=== PATIENT | female | born 1945 | race Caucasian/White ===

== ENCOUNTER → 2016-07-22 | Outpatient (CLI) | payer MEDICARE, OTHER ==
[~2016-07-22] MED LIST: ASPIRIN E.C. 8181 MG PO; CELEXA 20MG20 MG/TAB PO; FERROUS SU325 MG/TAB PO; FORT1000TA PO; GLUCOTROL XL10 MG PO; GLUCOTROL10 MG PO; GLUMETZA500 MG PO; IRON325 M1 PO; JANUVIA 100MG100 MG PO; LEVEMIR FLEX100 U/ML SQ; LEVEMIR100 U/ML SQ; LEXAPRO 10MG10 MG PO; MASON NATURAL600 MG; MULTIPLE VITAMI1 TA5 PO; NIZORAL A-D 20200 ML TP; NOVOLOG 100U100 U/M1 SQ; PRAVACHOL 40MG40 MG PO; PRINIVIL20 MG PO; PRINIVIL40 MG PO; SYNTHROID 0.10.15 MG PO; SYNTHROID0.1 MG/TAB PO; SYNTHROID0.112 MG/T PO; SYNTHROID0.137 MG PO; TYLENOL 325MG325 MG PO; ULTRAM 50MG TAB50 MG PO; VITAMIN C500 MG PO; XANAX .25M0.25 MG/TA PO; ZANTAC 150MG T150 MG PO; ZESTRIL 20MG TA20 MG PO
[2016-07-22 16:15] LABS: CREATININE, serum 0.97 mg/dL (0.52-1.25)
== END ==
LOC: ZLAB.STJ 15:29
PROVIDERS: Internal Medicine
DX: D50.8 Other iron deficiency anemias (principal)

== ENCOUNTER → 2016-10-03 | Outpatient (CLI) | payer MEDICARE, OTHER | LOC: ZLAB.STJ 19:30 | DX: Z53.9 Procedure and treatment not carried out, unspecified reason (principal) ==

== ENCOUNTER → 2016-10-03 | Outpatient (CLI) | payer MEDICARE, OTHER ==
[2016-10-03 18:11] LABS: HEMATOCRIT 25.8 % (37.0-47.0); HEMOGLOBIN 7.4 g/dl (12.5-16.0)
== END ==
LOC: ZLAB.STJ 16:33
PROVIDERS: Internal Medicine
DX: E11.65 Type 2 diabetes mellitus with hyperglycemia (principal); I10 Essential (primary) hypertension

== ENCOUNTER → 2016-10-03 | Outpatient (REF) ==
[2016-10-03 14:52] LABS: BASO % 0.5 % (0.0-2.0); EOS # 0.1 (0.0-0.7); EOS % 1.2 % (0-4.0); GRAN # 6.4 (1.4-6.5); GRAN % 73.8 % (42.2-75.2); LYMPH # 1.3 (1.2-3.4); LYMPH % 14.8 % (20.0-51.0); MEAN CELL VOLUME 77 fl (80.0-100.0); MEAN CORPUSCULAR HGB CONC 29 g/dl (33.0-37.0); MEAN PLATELET VOLUME 8.9 fl (7.4-10.4); MONO # 0.8 (0.1-0.6); MONO % 9.1 % (1.7-9.3); PLATELET COUNT 505 K/mm3 (130-400); RED BLOOD COUNT 2.52 M/mm3 (4.10-5.30); REDCELL DISTRIBUTION WIDTH-CV 17.2 % (11.5-14.5); WHITE BLOOD COUNT 8.6 K/mm3 (4.8-10.8)
[2016-10-03 14:56] LABS: HEMATOCRIT 19.3 % (37.0-47.0); MEAN CORPUSCULAR HEMOGLOBIN 22 pg (27.0-31.0)
[2016-10-03 14:59] LABS: ADJUSTED CALCIUM 9.7 mg/dL (8.4-10.2); ALBUMIN 3.6 gm/dL (3.5-5.0); BILIRUBIN,TOTAL 0.4 mg/dL (0.0-1.0); CALCIUM 9.4 mg/dL (8.4-10.2); CREATININE, serum 1.3 mg/dL (0.52-1.25); HEMOGLOBIN 5.6 g/dl (12.5-16.0); TOTAL PROTEIN 7.9 gm/dL (6.4-8.2)
[2016-10-03 15:50] LABS: POTASSIUM 5.8 mmol/L (3.4-5.0)
== END ==
LOC: ZLAB.STJ 14:34
PROVIDERS: Internal Medicine
DX: Z01.89 Encounter for other specified special examinations (principal)

== ENCOUNTER 2016-10-04 16:57 | Inpatient (IN) | payer MEDICARE, OTHER ==
[2016-10-04] VITALS (197 sets, daily range): BP systolic 133–175; BP diastolic 53–70; PULSE 73–81; TEMP 97.2–97.9; O2SAT 91–98
[~2016-10-04] VITALS: Ht 154.9 cm; Wt 79.0 kg
[~2016-10-04 16:57] MED LIST changes: -GLUMETZA500 MG PO; -LEVEMIR100 U/ML SQ; -MULTIPLE VITAMI1 TA5 PO; -NOVOLOG 100U100 U/M1 SQ; -PRINIVIL20 MG PO; -SYNTHROID0.112 MG/T PO; -ULTRAM 50MG TAB50 MG PO; -ZANTAC 150MG T150 MG PO
[2016-10-04] MEDS ORDERED: NOVOLOG 100U100 U/M1 SQ (17:46)
[2016-10-04] MEDS ORDERED: SYNTHROID0.112 MG/T PO (17:47)
[2016-10-04] MEDS ORDERED: ZANTAC 150MG T150 MG PO (17:47)
[2016-10-04] MEDS ORDERED: XANAX .25M0.25 MG/TA PO (17:48)
[2016-10-04 17:49] LABS: BASO # 0.1 (0.0-0.2); BASO % 0.6 % (0.0-2.0); EOS # 0.2 (0.0-0.7); GRAN # 5.4 (1.4-6.5); GRAN % 60.5 % (42.2-75.2); LYMPH % 22.3 % (20.0-51.0); MEAN CELL VOLUME 76 fl (80.0-100.0); MEAN CORPUSCULAR HGB CONC 29 g/dl (33.0-37.0); MEAN PLATELET VOLUME 8.4 fl (7.4-10.4); MONO # 1.3 (0.1-0.6); MONO % 14.2 % (1.7-9.3); PLATELET COUNT 502 K/mm3 (130-400); RED BLOOD COUNT 2.57 M/mm3 (4.10-5.30); REDCELL DISTRIBUTION WIDTH-CV 17.5 % (11.5-14.5)
[2016-10-04] MEDS ORDERED: FERROUS SU325 MG/TAB PO (17:49)
[2016-10-04] MEDS ORDERED: LEVEMIR100 U/ML SQ (17:50)
[2016-10-04 17:51] LABS: HEMATOCRIT 19.5 % (37.0-47.0); HEMOGLOBIN 5.6 g/dl (12.5-16.0); MEAN CORPUSCULAR HEMOGLOBIN 22 pg (27.0-31.0)
[2016-10-04] MEDS ORDERED: GLUMETZA500 MG PO (17:52)
[2016-10-04] MEDS ORDERED: ASPIRIN E.C. 8181 MG PO (17:52)
[2016-10-04] MEDS ORDERED: PRAVACHOL 40MG40 MG PO (17:53)
[2016-10-04] MEDS ORDERED: JANUVIA 100MG100 MG PO (17:54)
[2016-10-04] MEDS ORDERED: PRINIVIL20 MG PO (17:54)
[2016-10-04] MEDS ORDERED: LEXAPRO 10MG10 MG PO (17:55)
[2016-10-04] MEDS ORDERED: MULTIPLE VITAMI1 TA5 PO (17:55)
[2016-10-04] MEDS ORDERED: TYLENOL 325MG325 MG PO (17:57)
[2016-10-04] MEDS ORDERED: ULTRAM 50MG TAB50 MG PO (17:58)
[2016-10-04 18:00] LABS: ADJUSTED CALCIUM 9.8 mg/dL (8.4-10.2); ALBUMIN 3.8 gm/dL (3.5-5.0); BILIRUBIN,TOTAL 0.3 mg/dL (0.0-1.0); CALCIUM 9.6 mg/dL (8.4-10.2); CREATININE, serum 1.56 mg/dL (0.52-1.25); POTASSIUM 5.4 mmol/L (3.4-5.0); TOTAL PROTEIN 8.1 gm/dL (6.4-8.2)
[2016-10-04 18:05] LABS: INR 1.2 (0.8-3.0)
[2016-10-04 18:07] LABS: PARTIAL THROMBOPLASTIN TIME 31.9 SECONDS (26.0-37.0)
[2016-10-04 23:15] LABS: PH 7 (5-8); URINE APPEARANCE Turbid; URINE BACTERIA None Seen /hpf; URINE BILIRUBIN Negative (NEGATIVE); URINE BLOOD Negative (NEGATIVE); URINE COLOR Amber; URINE GLUCOSE Negative (NEGATIVE); URINE KETONE Negative (NEGATIVE); URINE RBC 20-50 /hpf; URINE UROBILINOGEN Negative (NEGATIVE); URINE WBC >50 /hpf
[2016-10-05] VITALS (415 sets, daily range): BP systolic 143–178; BP diastolic 60–83; PULSE 71–79; TEMP 97.1–98.4; O2SAT 78–100
[2016-10-05 03:30] LABS: HEMATOCRIT 27.2 % (37.0-47.0); HEMOGLOBIN 8.1 g/dl (12.5-16.0)
[2016-10-05 06:35] LABS: BASO # 0.1 (0.0-0.2); BASO % 0.8 % (0.0-2.0); EOS # 0.2 (0.0-0.7); EOS % 2.6 % (0-4.0); GRAN % 65.3 % (42.2-75.2); LYMPH # 1.3 (1.2-3.4); MEAN CORPUSCULAR HGB CONC 30 g/dl (33.0-37.0); MEAN PLATELET VOLUME 8.3 fl (7.4-10.4); MONO # 1.1 (0.1-0.6); MONO % 13.8 % (1.7-9.3); PLATELET COUNT 442 K/mm3 (130-400); RED BLOOD COUNT 3.39 M/mm3 (4.10-5.30); REDCELL DISTRIBUTION WIDTH-CV 17.5 % (11.5-14.5); WHITE BLOOD COUNT 7.6 K/mm3 (4.8-10.8)
[2016-10-05 06:42] LABS: CALCIUM 9.2 mg/dL (8.4-10.2); CREATININE, serum 1.38 mg/dL (0.52-1.25); HEMATOCRIT 27.4 % (37.0-47.0); HEMOGLOBIN 8.1 g/dl (12.5-16.0); MEAN CELL VOLUME 81 fl (80.0-100.0); MEAN CORPUSCULAR HEMOGLOBIN 24 pg (27.0-31.0); POTASSIUM 5.2 mmol/L (3.4-5.0)
[2016-10-05 12:22] LABS: HEMATOCRIT 28.5 % (37.0-47.0); HEMOGLOBIN 8.3 g/dl (12.5-16.0)
== END 2016-10-05 14:47 | DRG 378 ==
LOC: COL.ER 16:57 → ICU 18:41
PROVIDERS: Emergency Medicine; Nurse Practitioner Family
DX: K92.1 Melena (principal); N17.9 Acute kidney failure, unspecified; I69.354 Hemiplegia and hemiparesis following cerebral infarction affecting left non-dominant side; E87.2 Acidosis; D62 Acute posthemorrhagic anemia; E11.9 Type 2 diabetes mellitus without complications; I10 Essential (primary) hypertension; Z79.4 Long term (current) use of insulin; Z87.891 Personal history of nicotine dependence; E87.5 Hyperkalemia; F41.1 Generalized anxiety disorder
CPT/HCPCS: 99223-AI; C9113; J0360; J1815; J7030; P9016

== ENCOUNTER → 2016-10-04 | Outpatient (CLI) | payer MEDICARE, OTHER ==
[2016-10-04 15:33] LABS: HEMATOCRIT 18.6 % (37.0-47.0); HEMOGLOBIN 5.2 g/dl (12.5-16.0)
== END ==
LOC: ZLAB.STJ 15:13
PROVIDERS: Internal Medicine
DX: Z53.9 Procedure and treatment not carried out, unspecified reason (principal)

== ENCOUNTER → 2016-10-04 | Outpatient (CLI) | payer MEDICARE, OTHER ==
[2016-10-04 12:03] LABS: BASO % 0.3 % (0.0-2.0); EOS # 0.1 (0.0-0.7); EOS % 1.8 % (0-4.0); GRAN # 5.1 (1.4-6.5); GRAN % 67.1 % (42.2-75.2); LYMPH # 1.4 (1.2-3.4); LYMPH % 17.9 % (20.0-51.0); MEAN CELL VOLUME 78 fl (80.0-100.0); MEAN CORPUSCULAR HGB CONC 28 g/dl (33.0-37.0); MEAN PLATELET VOLUME 8.7 fl (7.4-10.4); MONO % 12.4 % (1.7-9.3); PLATELET COUNT 504 K/mm3 (130-400); REDCELL DISTRIBUTION WIDTH-CV 17.5 % (11.5-14.5); WHITE BLOOD COUNT 7.6 K/mm3 (4.8-10.8)
[2016-10-04 12:09] LABS: HEMATOCRIT 19.4 % (37.0-47.0); HEMOGLOBIN 5.4 g/dl (12.5-16.0); MEAN CORPUSCULAR HEMOGLOBIN 22 pg (27.0-31.0)
[2016-10-04 12:26] LABS: LACTATE DEHYDROGENASE 338 U/L (313-618)
[2016-10-04 12:35] LABS: TOTAL IRON BINDING CAPACITY 366 ug/dL (265-497)
[2016-10-04 13:03] LABS: FERRITIN 8 ng/mL (11-264)
== END ==
LOC: ZLAB.STJ 11:41
PROVIDERS: Internal Medicine
DX: E11.65 Type 2 diabetes mellitus with hyperglycemia (principal)

== ENCOUNTER → 2016-10-18 | Outpatient (CLI) | payer MEDICARE, OTHER ==
[~2016-10-18] MED LIST changes: +GLUMETZA500 MG PO; +LEVEMIR100 U/ML SQ; +MULTIPLE VITAMI1 TA5 PO; +NOVOLOG 100U100 U/M1 SQ; +PRINIVIL20 MG PO; +SYNTHROID0.112 MG/T PO; +ULTRAM 50MG TAB50 MG PO; +ZANTAC 150MG T150 MG PO
== END ==
LOC: COL.RAD 12:15
DX: N13.39 Other hydronephrosis (principal); N28.82 Megaloureter

== ENCOUNTER → 2016-10-25 | Outpatient (REF) ==
[2016-10-25 14:28] LABS: BASO # 0.1 (0.0-0.2); BASO % 0.8 % (0.0-2.0); EOS # 0.2 (0.0-0.7); EOS % 1.9 % (0-4.0); GRAN # 5.8 (1.4-6.5); GRAN % 73.1 % (42.2-75.2); LYMPH # 1.2 (1.2-3.4); LYMPH % 14.8 % (20.0-51.0); MEAN CELL VOLUME 80 fl (80.0-100.0); MEAN CORPUSCULAR HGB CONC 30 g/dl (33.0-37.0); MEAN PLATELET VOLUME 8.9 fl (7.4-10.4); MONO # 0.7 (0.1-0.6); PLATELET COUNT 413 K/mm3 (130-400); RED BLOOD COUNT 3.57 M/mm3 (4.10-5.30); REDCELL DISTRIBUTION WIDTH-CV 17.8 % (11.5-14.5); WHITE BLOOD COUNT 7.9 K/mm3 (4.8-10.8)
[2016-10-25 14:58] LABS: HEMATOCRIT 28.4 % (37.0-47.0); HEMOGLOBIN 8.6 g/dl (12.5-16.0); MEAN CORPUSCULAR HEMOGLOBIN 24 pg (27.0-31.0)
== END ==
LOC: ZLAB.STJ 14:21
PROVIDERS: Internal Medicine
DX: Z01.89 Encounter for other specified special examinations (principal)

== ENCOUNTER → 2016-11-24 | Outpatient (REF) ==
[2016-11-24 11:28] LABS: CREATININE, serum 1.41 mg/dL (0.52-1.25)
[2016-11-24 11:32] LABS: POTASSIUM 5.8 mmol/L (3.4-5.0)
[2016-11-24 12:39] LABS: CALCIUM 9.1 mg/dL (8.4-10.2); CREATININE, serum 1.41 mg/dL (0.52-1.25)
[2016-11-24 13:25] LABS: POTASSIUM 5.9 mmol/L (3.4-5.0)
== END ==
LOC: ZLAB.STJ 09:22
PROVIDERS: Internal Medicine
DX: Z01.89 Encounter for other specified special examinations (principal)

== ENCOUNTER 2016-11-25 13:39 | Emergency (ER) | payer MEDICARE, OTHER ==
[~2016-11-25] VITALS: Ht 154.9 cm; Wt 78.2 kg
[2016-11-25 13:42] VITALS: BP 162/60; PULSE 80; TEMP 99.2
[2016-11-25] MEDS ORDERED: VITAMIN C500 MG PO (13:54)
[2016-11-25 14:11] LABS: BASO % 0.6 % (0.0-2.0); EOS # 0.2 (0.0-0.7); EOS % 2.5 % (0-4.0); GRAN # 4.2 (1.4-6.5); GRAN % 64.8 % (42.2-75.2); HEMATOCRIT 28.2 % (37.0-47.0); HEMOGLOBIN 8.4 g/dl (12.5-16.0); LYMPH # 1.2 (1.2-3.4); LYMPH % 19.2 % (20.0-51.0); MEAN CELL VOLUME 80 fl (80.0-100.0); MEAN CORPUSCULAR HEMOGLOBIN 24 pg (27.0-31.0); MEAN CORPUSCULAR HGB CONC 30 g/dl (33.0-37.0); MEAN PLATELET VOLUME 8.5 fl (7.4-10.4); MONO # 0.8 (0.1-0.6); MONO % 12.6 % (1.7-9.3); PLATELET COUNT 409 K/mm3 (130-400); RED BLOOD COUNT 3.53 M/mm3 (4.10-5.30); REDCELL DISTRIBUTION WIDTH-CV 18.4 % (11.5-14.5); WHITE BLOOD COUNT 6.5 K/mm3 (4.8-10.8)
[2016-11-25 14:26] LABS: ADJUSTED CALCIUM 9.6 mg/dL (8.4-10.2); ALBUMIN 3.4 gm/dL (3.5-5.0); BILIRUBIN,TOTAL 0.4 mg/dL (0.0-1.0); CALCIUM 9.1 mg/dL (8.4-10.2); CREATININE, serum 1.39 mg/dL (0.52-1.25); POTASSIUM 5.7 mmol/L (3.4-5.0); TOTAL PROTEIN 7.6 gm/dL (6.4-8.2)
== END 2016-11-25 15:17 | disposition home or self-care (01) ==
LOC: COL.ER 13:39
PROVIDERS: Nurse Practitioner
DX: E87.5 Hyperkalemia (principal); F41.9 Anxiety disorder, unspecified; F32.9 Major depressive disorder, single episode, unspecified

== ENCOUNTER → 2016-11-25 | Outpatient (CLI) | payer MEDICARE, OTHER ==
[2016-11-25 12:45] LABS: CALCIUM 9.2 mg/dL (8.4-10.2); CREATININE, serum 1.29 mg/dL (0.52-1.25)
[2016-11-25 12:49] LABS: POTASSIUM 6.6 mmol/L (3.4-5.0)
== END ==
LOC: ZLAB.STJ 11:38
PROVIDERS: Internal Medicine
DX: E11.65 Type 2 diabetes mellitus with hyperglycemia (principal)

== ENCOUNTER → 2016-11-28 | Outpatient (CLI) | payer MEDICARE, OTHER ==
[2016-11-28 15:17] LABS: CALCIUM 8.8 mg/dL (8.4-10.2); CREATININE, serum 1.28 mg/dL (0.52-1.25); POTASSIUM 4.8 mmol/L (3.4-5.0)
== END ==
LOC: ZLAB.STJ 10:45
PROVIDERS: Internal Medicine
DX: E11.65 Type 2 diabetes mellitus with hyperglycemia (principal)

== ENCOUNTER → 2016-12-01 | Outpatient (CLI) | payer MEDICARE, OTHER ==
[2016-12-01 10:52] LABS: CALCIUM 9.1 mg/dL (8.4-10.2); CREATININE, serum 1.24 mg/dL (0.52-1.25); POTASSIUM 5.3 mmol/L (3.4-5.0)
== END ==
LOC: ZLAB.STJ 09:36
PROVIDERS: Internal Medicine
DX: E87.5 Hyperkalemia (principal)

== ENCOUNTER → 2016-12-06 | Outpatient (CLI) | payer MEDICARE, OTHER ==
[2016-12-06 14:08] LABS: CALCIUM 9.4 mg/dL (8.4-10.2); CREATININE, serum 1.1 mg/dL (0.52-1.25); POTASSIUM 4.3 mmol/L (3.4-5.0)
== END ==
LOC: ZLAB.STJ 12:44
PROVIDERS: Internal Medicine
DX: E11.65 Type 2 diabetes mellitus with hyperglycemia (principal)

== ENCOUNTER → 2016-12-12 | Outpatient (CLI) | payer MEDICARE, OTHER ==
[2016-12-12 15:34] LABS: CALCIUM 8.7 mg/dL (8.4-10.2); CREATININE, serum 1.33 mg/dL (0.52-1.25); POTASSIUM 5.1 mmol/L (3.4-5.0)
== END ==
LOC: COL.LAB 15:00
PROVIDERS: Internal Medicine
DX: E11.65 Type 2 diabetes mellitus with hyperglycemia (principal)

== ENCOUNTER → 2016-12-19 | Outpatient (REF) ==
[2016-12-19 09:45] LABS: CALCIUM 8.7 mg/dL (8.4-10.2); CREATININE, serum 1.31 mg/dL (0.52-1.25); POTASSIUM 4.5 mmol/L (3.4-5.0)
== END ==
LOC: ZLAB.STJ 09:11
PROVIDERS: Internal Medicine
DX: Z01.89 Encounter for other specified special examinations (principal)

== ENCOUNTER → 2016-12-29 | Outpatient (CLI) | payer MEDICARE, OTHER ==
[2016-12-29 15:27] LABS: CALCIUM 8.9 mg/dL (8.4-10.2); CREATININE, serum 1.24 mg/dL (0.52-1.25); POTASSIUM 4.3 mmol/L (3.4-5.0)
== END ==
LOC: ZLAB.STJ 14:56
PROVIDERS: Internal Medicine
DX: D50.9 Iron deficiency anemia, unspecified (principal)

== ENCOUNTER → 2017-01-12 | Outpatient (CLI) | payer MEDICARE, OTHER ==
[2017-01-12 17:24] LABS: CALCIUM 9.3 mg/dL (8.4-10.2); CREATININE, serum 1.28 mg/dL (0.52-1.25)
== END ==
LOC: ZCOL.LAB 16:36
PROVIDERS: Internal Medicine
DX: D50.9 Iron deficiency anemia, unspecified (principal)

== ENCOUNTER → 2017-01-18 | Outpatient (CLI) | payer MEDICARE, OTHER ==
[2017-01-18 17:21] LABS: CALCIUM 9.6 mg/dL (8.4-10.2); CREATININE, serum 1.44 mg/dL (0.52-1.25); POTASSIUM 5.3 mmol/L (3.4-5.0)
== END ==
LOC: ZLAB.STJ 16:35
PROVIDERS: Internal Medicine
DX: E11.65 Type 2 diabetes mellitus with hyperglycemia (principal)

== ENCOUNTER → 2017-06-12 | Outpatient (REF) ==
[2017-06-12 10:07] LABS: ADJUSTED CALCIUM 9.7 mg/dL (8.4-10.2); ALBUMIN 3.8 gm/dL (3.5-5.0); BILIRUBIN,TOTAL 0.3 mg/dL (0.0-1.0); CALCIUM 9.5 mg/dL (8.4-10.2); CHOLESTEROL RISK RATIO 5.3; CREATININE, serum 1.79 mg/dL (0.52-1.25); POTASSIUM 4.9 mmol/L (3.4-5.0); TOTAL PROTEIN 7.6 gm/dL (6.4-8.2)
[2017-06-12 10:36] LABS: THYROID STIMULATING HORMONE 6.06 uIU/mL (0.465-4.680)
== END ==
LOC: ZLAB.STJ 09:26
PROVIDERS: Internal Medicine
DX: D50.9 Iron deficiency anemia, unspecified (principal); E78.5 Hyperlipidemia, unspecified

== ENCOUNTER → 2017-06-13 | Outpatient (CLI) | payer MEDICARE, OTHER ==
[2017-06-13 11:35] LABS: CALCIUM 8.9 mg/dL (8.4-10.2); CREATININE, serum 1.67 mg/dL (0.52-1.25); POTASSIUM 4.7 mmol/L (3.4-5.0)
== END ==
LOC: ZLAB.STJ 09:36
PROVIDERS: Internal Medicine
DX: E11.65 Type 2 diabetes mellitus with hyperglycemia (principal); D50.9 Iron deficiency anemia, unspecified

== ENCOUNTER → 2017-07-31 | Outpatient (CLI) | payer MEDICARE, OTHER ==
[2017-07-31 16:55] LABS: CREATININE, serum 1.94 mg/dL (0.52-1.25); POTASSIUM 4.4 mmol/L (3.4-5.0)
== END ==
LOC: ZLAB.STJ 16:39
PROVIDERS: Internal Medicine
DX: E87.5 Hyperkalemia (principal)

== ENCOUNTER → 2017-08-02 | Outpatient (REF) ==
[2017-08-02 16:12] LABS: COLLECTION METHOD CATHETER
[2017-08-02 16:28] LABS: MUCOUS Present /lpf; PH 6 (5-8); SQUAMOUS EPITHELIAL None Seen /hpf; URINE APPEARANCE Turbid; URINE BACTERIA Many /hpf; URINE BILIRUBIN Negative (NEGATIVE); URINE BLOOD 1+ (NEGATIVE); URINE COLOR Yellow; URINE GLUCOSE Negative (NEGATIVE); URINE KETONE Negative (NEGATIVE); URINE LEUKOCYTE ESTERASE 3+ (NEGATIVE); URINE NITRATE Negative (NEGATIVE); URINE PROTEIN(semi-quant) 3+ (NEGATIVE); URINE RBC >50 /hpf; URINE UROBILINOGEN Negative (NEGATIVE); URINE WBC >50 /hpf
== END ==
LOC: ZLAB.STJ 16:08
PROVIDERS: Internal Medicine
DX: R82.90 Unspecified abnormal findings in urine (principal)

== ENCOUNTER → 2017-09-28 | Outpatient (CLI) | payer MEDICARE, OTHER ==
[~2017-09-28] MED LIST changes: +ALMACONE 360 M360 ML PO; +IMODIUM 2MG CAPS2 MG PO; +KIONEX15 GM/60 M PO; +LASIX 40MG TABL40 MG PO; +MYCOSTATIN100000 U/1 TP; +NORVASC 10MG10 MG PO; +OMNICEF 300MG300 MG PO; +PHENERGAN25 MG RC; +SYNTHROID0.125 MG/T PO; +TOPROL XL 25MG25 MG PO; +ZANTAC 7575 MG PO
[2017-09-28 14:34] LABS: CREATININE, serum 1.95 mg/dL (0.52-1.25)
== END ==
LOC: ZLAB.STJ 14:15
PROVIDERS: Internal Medicine
DX: E66.01 Morbid (severe) obesity due to excess calories (principal)

== ENCOUNTER → 2017-10-02 | Outpatient (CLI) | payer MEDICARE, OTHER | LOC: COL.RAD 13:46 | DX: J98.11 Atelectasis (principal); J98.4 Other disorders of lung; I51.7 Cardiomegaly ==

== ENCOUNTER → 2017-10-04 | Outpatient (CLI) | payer MEDICARE, OTHER ==
[2017-10-04 14:09] LABS: COLLECTION METHOD CLEAN CATCH
[2017-10-04 14:17] LABS: PH 5 (5-8); URINE APPEARANCE Turbid; URINE BACTERIA None Seen /hpf; URINE BILIRUBIN Negative (NEGATIVE); URINE BLOOD 1+ (NEGATIVE); URINE COLOR Yellow; URINE GLUCOSE 1+ (NEGATIVE); URINE KETONE Negative (NEGATIVE); URINE LEUKOCYTE ESTERASE 3+ (NEGATIVE); URINE NITRATE Negative (NEGATIVE); URINE PROTEIN(semi-quant) 2+ (NEGATIVE); URINE UROBILINOGEN Negative (NEGATIVE)
== END ==
LOC: ZLAB.STJ 14:08
PROVIDERS: Internal Medicine
DX: R82.90 Unspecified abnormal findings in urine (principal)

== ENCOUNTER → 2017-10-11 | Outpatient (CLI) | payer MEDICARE, OTHER ==
[2017-10-11 10:07] LABS: BASO # 0.1 (0.0-0.2); EOS # 0.3 (0.0-0.7); EOS % 4.3 % (0-4.0); GRAN % 69.4 % (42.2-75.2); LYMPH # 1.1 (1.2-3.4); LYMPH % 14.8 % (20.0-51.0); MEAN CELL VOLUME 81 fl (80.0-100.0); MEAN CORPUSCULAR HGB CONC 32 g/dl (33.0-37.0); MEAN PLATELET VOLUME 8.9 fl (7.4-10.4); MONO # 0.7 (0.1-0.6); MONO % 10.1 % (1.7-9.3); PLATELET COUNT 332 K/mm3 (130-400); RED BLOOD COUNT 3.02 M/mm3 (4.10-5.30); REDCELL DISTRIBUTION WIDTH-CV 16.7 % (11.5-14.5)
[2017-10-11 10:08] LABS: HEMATOCRIT 24.4 % (37.0-47.0); HEMOGLOBIN 7.7 g/dl (12.5-16.0); MEAN CORPUSCULAR HEMOGLOBIN 25 pg (27.0-31.0)
[2017-10-11 10:51] LABS: THYROID STIMULATING HORMONE 2.73 uIU/mL (0.465-4.680)
== END ==
LOC: ZLAB.STJ 09:52
PROVIDERS: Internal Medicine
DX: E50.9 Vitamin A deficiency, unspecified (principal); D50.9 Iron deficiency anemia, unspecified; R79.89 Other specified abnormal findings of blood chemistry; R73.09 Other abnormal glucose; R94.6 Abnormal results of thyroid function studies

== ENCOUNTER → 2017-10-20 | Outpatient (REF) ==
[2017-10-20 13:45] LABS: COLLECTION METHOD CLEAN CATCH
[2017-10-20 13:54] LABS: BUDDING YEAST Present /hpf; PH 5 (5-8); URINE APPEARANCE Turbid; URINE BACTERIA None Seen /hpf; URINE BILIRUBIN Negative (NEGATIVE); URINE BLOOD 1+ (NEGATIVE); URINE COLOR Yellow; URINE GLUCOSE 1+ (NEGATIVE); URINE KETONE Negative (NEGATIVE); URINE LEUKOCYTE ESTERASE 3+ (NEGATIVE); URINE NITRATE Negative (NEGATIVE); URINE PROTEIN(semi-quant) 2+ (NEGATIVE); URINE RBC 20-50 /hpf; URINE UROBILINOGEN Negative (NEGATIVE); URINE WBC >50 /hpf
== END ==
LOC: ZLAB.STJ 13:44
PROVIDERS: Internal Medicine
DX: R82.90 Unspecified abnormal findings in urine (principal)

== ENCOUNTER → 2018-01-21 | Outpatient (CLI) | payer MEDICARE, OTHER ==
[2018-01-21 13:51] LABS: BASO # 0.1 (0.0-0.2); BASO % 0.6 % (0.0-2.0); EOS # 0.2 (0.0-0.7); EOS % 2.5 % (0-4.0); GRAN # 6.5 (1.4-6.5); GRAN % 72.2 % (42.2-75.2); LYMPH # 1.3 (1.2-3.4); LYMPH % 14.9 % (20.0-51.0); MEAN CELL VOLUME 85 fl (80.0-100.0); MEAN CORPUSCULAR HGB CONC 31 g/dl (33.0-37.0); MEAN PLATELET VOLUME 9.2 fl (7.4-10.4); MONO # 0.9 (0.1-0.6); MONO % 9.5 % (1.7-9.3); PLATELET COUNT 350 K/mm3 (130-400); RED BLOOD COUNT 2.64 M/mm3 (4.10-5.30); REDCELL DISTRIBUTION WIDTH-CV 16.2 % (11.5-14.5)
[2018-01-21 14:01] LABS: HEMATOCRIT 22.4 % (37.0-47.0); HEMOGLOBIN 6.9 g/dl (12.5-16.0); MEAN CORPUSCULAR HEMOGLOBIN 26 pg (27.0-31.0)
[2018-01-21 14:02] LABS: CALCIUM 9.3 mg/dL (8.4-10.2); CREATININE, serum 2.79 mg/dL (0.52-1.25); POTASSIUM 5.4 mmol/L (3.4-5.0)
== END ==
LOC: ZCOL.LAB 13:39
PROVIDERS: Internal Medicine
DX: E11.65 Type 2 diabetes mellitus with hyperglycemia (principal); D50.9 Iron deficiency anemia, unspecified; M62.81 Muscle weakness (generalized)

== ENCOUNTER → 2018-01-21 | Outpatient (REF) ==
[~2018-01-21] MED LIST changes: +DIFLUCAN150 MG PO; +HUMALOG100 U/ML SQ; +PROTONIX 40MG T40 MG PO; +TRADJENTA5 MG PO
== END ==
LOC: ZLAB.STJ 13:23
DX: Z18.9 Retained foreign body fragments, unspecified material (principal)

== ENCOUNTER → 2018-01-23 | Outpatient (CLI) | payer MEDICARE, OTHER ==
[~2018-01-23] MED LIST changes: -DIFLUCAN150 MG PO; -PROTONIX 40MG T40 MG PO
[2018-01-23 14:19] LABS: BASO # 0.1 (0.0-0.2); BASO % 0.6 % (0.0-2.0); EOS # 0.1 (0.0-0.7); EOS % 1.7 % (0-4.0); GRAN # 6.5 (1.4-6.5); GRAN % 78.8 % (42.2-75.2); LYMPH % 11.8 % (20.0-51.0); MEAN CELL VOLUME 85 fl (80.0-100.0); MEAN CORPUSCULAR HGB CONC 31 g/dl (33.0-37.0); MONO # 0.6 (0.1-0.6); MONO % 6.7 % (1.7-9.3); PLATELET COUNT 358 K/mm3 (130-400); RED BLOOD COUNT 2.71 M/mm3 (4.10-5.30); REDCELL DISTRIBUTION WIDTH-CV 16.2 % (11.5-14.5)
[2018-01-23 14:21] LABS: HEMATOCRIT 22.9 % (37.0-47.0); MEAN CORPUSCULAR HEMOGLOBIN 26 pg (27.0-31.0)
[2018-01-23 15:30] LABS: ALBUMIN 4.1 gm/dL (3.5-5.0); BILIRUBIN,TOTAL 0.1 mg/dL (0.0-1.0); CALCIUM 9.2 mg/dL (8.4-10.2); CREATININE, serum 2.7 mg/dL (0.52-1.25); TOTAL PROTEIN 8.1 gm/dL (6.4-8.2)
[2018-01-23 15:39] LABS: POTASSIUM 5.9 mmol/L (3.4-5.0)
== END ==
LOC: ZLAB.STJ 14:08
PROVIDERS: Internal Medicine
DX: D50.0 Iron deficiency anemia secondary to blood loss (chronic) (principal); N18.4 Chronic kidney disease, stage 4 (severe)

== ENCOUNTER → 2018-01-30 | Outpatient (CLI) | payer MEDICARE, OTHER ==
[~2018-01-30] MED LIST changes: +DIFLUCAN150 MG PO; +PROTONIX 40MG T40 MG PO
[2018-01-30 11:04] LABS: MEAN CELL VOLUME 86 fl (80.0-100.0); MEAN CORPUSCULAR HGB CONC 32 g/dl (33.0-37.0); MEAN PLATELET VOLUME 9.3 fl (7.4-10.4); PLATELET COUNT 273 K/mm3 (130-400); RED BLOOD COUNT 2.71 M/mm3 (4.10-5.30); REDCELL DISTRIBUTION WIDTH-CV 15.6 % (11.5-14.5)
[2018-01-30 11:06] LABS: CALCIUM 8.8 mg/dL (8.4-10.2); CREATININE, serum 1.7 mg/dL (0.52-1.25); HEMATOCRIT 23.3 % (37.0-47.0); HEMOGLOBIN 7.5 g/dl (12.5-16.0); MEAN CORPUSCULAR HEMOGLOBIN 28 pg (27.0-31.0); POTASSIUM 4.5 mmol/L (3.4-5.0)
== END ==
LOC: ZLAB.AMS 06:50 → ZLAB.STJ 06:50
PROVIDERS: Internal Medicine
DX: D64.9 Anemia, unspecified (principal)

== ENCOUNTER → 2018-02-01 | Outpatient (REF) ==
[2018-02-01 14:35] LABS: COLLECTION METHOD CLEAN CATCH
[2018-02-01 14:54] LABS: PH 5 (5-8); URINE APPEARANCE Cloudy; URINE BACTERIA Rare /hpf; URINE BILIRUBIN Negative (NEGATIVE); URINE BLOOD 1+ (NEGATIVE); URINE COLOR Yellow; URINE GLUCOSE 1+ (NEGATIVE); URINE KETONE Negative (NEGATIVE); URINE LEUKOCYTE ESTERASE 3+ (NEGATIVE); URINE NITRATE Negative (NEGATIVE); URINE PROTEIN(semi-quant) 2+ (NEGATIVE); URINE UROBILINOGEN Negative (NEGATIVE); URINE WBC >50 /hpf
== END ==
LOC: ZLAB.STJ 14:34
PROVIDERS: Internal Medicine
DX: Z01.89 Encounter for other specified special examinations (principal)

== ENCOUNTER → 2018-02-12 | Outpatient (CLI) | payer MEDICARE, OTHER ==
[2018-02-12 09:47] LABS: CALCIUM 8.4 mg/dL (8.4-10.2); CREATININE, serum 1.91 mg/dL (0.52-1.25); POTASSIUM 4.4 mmol/L (3.4-5.0)
== END ==
LOC: ZLAB.STJ 09:32
PROVIDERS: Internal Medicine
DX: I10 Essential (primary) hypertension (principal)

== ENCOUNTER 2018-03-19 09:12 | Inpatient (IN) | payer MEDICARE, OTHER ==
[2018-03-19] VITALS (358 sets, daily range): BP systolic 120–145; BP diastolic 54–106; PULSE 64–77; TEMP 97–99; O2SAT 76–99
[~2018-03-19] VITALS: Ht 152.4 cm; Wt 87.2 kg
[~2018-03-19 09:12] MED LIST changes: +MULTIPLE VITAMI1 CAP PO; -MULTIPLE VITAMI1 TA5 PO
[2018-03-19 10:38] LABS: BASO % 0.1 % (0.0-2.0); EOS # 0.1 (0.0-0.7); EOS % 0.4 % (0-4.0); GRAN # 13.2 (1.4-6.5); LYMPH # 0.9 (1.2-3.4); LYMPH % 5.9 % (20.0-51.0); MEAN CELL VOLUME 79 fl (80.0-100.0); MEAN CORPUSCULAR HGB CONC 29 g/dl (33.0-37.0); MONO % 6.2 % (1.7-9.3); PLATELET COUNT 580 K/mm3 (130-400); RED BLOOD COUNT 2.48 M/mm3 (4.10-5.30); REDCELL DISTRIBUTION WIDTH-CV 17.3 % (11.5-14.5)
[2018-03-19 10:40] LABS: HEMATOCRIT 19.6 % (37.0-47.0); HEMOGLOBIN 5.7 g/dl (12.5-16.0); INR 1.2 (0.8-3.0); MEAN CORPUSCULAR HEMOGLOBIN 23 pg (27.0-31.0); PROTHROMBIN TIME 13.6 SECONDS (9.7-12.8)
[2018-03-19 10:43] LABS: PARTIAL THROMBOPLASTIN TIME 30.4 SECONDS (26.0-37.0)
[2018-03-19 10:47] LABS: ALBUMIN 3.6 gm/dL (3.5-5.0); BILIRUBIN,TOTAL 0.3 mg/dL (0.0-1.0); CALCIUM 8.5 mg/dL (8.4-10.2); CREATININE, serum 2.47 mg/dL (0.52-1.25); POTASSIUM 4.2 mmol/L (3.4-5.0); TOTAL PROTEIN 7.7 gm/dL (6.4-8.2)
[2018-03-19 11:00] LABS: COLLECTION METHOD CATHETER
[2018-03-19 11:03] LABS: TROPONIN-I 3.21 ng/mL (0.000-0.034)
[2018-03-19 11:13] LABS: PH 5 (5-8); SQUAMOUS EPITHELIAL 0-2 /hpf; URINE APPEARANCE Turbid; URINE BACTERIA None Seen /hpf; URINE BILIRUBIN Negative (NEGATIVE); URINE BLOOD 1+ (NEGATIVE); URINE COLOR Yellow; URINE GLUCOSE 1+ (NEGATIVE); URINE KETONE Negative (NEGATIVE); URINE LEUKOCYTE ESTERASE 3+ (NEGATIVE); URINE NITRATE Negative (NEGATIVE); URINE PROTEIN(semi-quant) 2+ (NEGATIVE); URINE UROBILINOGEN Negative (NEGATIVE)
[2018-03-19] MEDS ORDERED: TRADJENTA5 MG PO (11:30)
[2018-03-19] MEDS ORDERED: PROTONIX 40MG T40 MG PO (15:04)
[2018-03-19] MEDS ORDERED: TOPROL XL 25MG25 MG PO (15:08)
[2018-03-19] MEDS ORDERED: LASIX 40MG TABL40 MG PO (15:09)
[2018-03-19] MEDS ORDERED: TYLENOL 325MG325 MG PO (15:14)
[2018-03-19 19:24] LABS: HEMATOCRIT 21.6 % (37.0-47.0); HEMOGLOBIN 6.6 g/dl (12.5-16.0)
[2018-03-20] VITALS (675 sets, daily range): BP systolic 124–149; BP diastolic 57–73; PULSE 61–74; TEMP 97.1–98.5; O2SAT 74–100
[2018-03-20 05:55] LABS: BASO % 0.2 % (0.0-2.0); EOS # 0.2 (0.0-0.7); EOS % 1.1 % (0-4.0); GRAN # 11.5 (1.4-6.5); GRAN % 85.9 % (42.2-75.2); LYMPH # 0.5 (1.2-3.4); LYMPH % 3.5 % (20.0-51.0); MEAN CELL VOLUME 83 fl (80.0-100.0); MEAN CORPUSCULAR HGB CONC 30 g/dl (33.0-37.0); MEAN PLATELET VOLUME 8.9 fl (7.4-10.4); MONO # 1.1 (0.1-0.6); MONO % 8.4 % (1.7-9.3); REDCELL DISTRIBUTION WIDTH-CV 16.6 % (11.5-14.5)
[2018-03-20 05:57] LABS: HEMATOCRIT 25.7 % (37.0-47.0); HEMOGLOBIN 7.8 g/dl (12.5-16.0); MEAN CORPUSCULAR HEMOGLOBIN 25 pg (27.0-31.0)
[2018-03-20 05:58] LABS: PLATELET COUNT 439 K/mm3 (130-400)
[2018-03-20 06:09] LABS: ALBUMIN 3.2 gm/dL (3.5-5.0); BILIRUBIN,TOTAL 0.4 mg/dL (0.0-1.0); CALCIUM 8.1 mg/dL (8.4-10.2); CREATININE, serum 2.41 mg/dL (0.52-1.25); POTASSIUM 3.8 mmol/L (3.4-5.0); TOTAL PROTEIN 6.9 gm/dL (6.4-8.2)
[2018-03-20 16:25] LABS: PLEURAL FLUID APPEARANCE HAZY; PLEURAL FLUID COLOR YELLOW
[2018-03-20 16:28] LABS: PLEURAL FLUID RBC 2000 /mm3 (0-0); PLEURAL FLUID WBC 506 /mm3
[2018-03-20 16:44] LABS: GLUCOSE,PLEURAL FLUID 147 mg/dL; TOTAL PROTEIN,PLEURAL FLUID 2.4 gm/dL
[2018-03-21] VITALS (9 sets, daily range): BP systolic 90–140; BP diastolic 44–70; PULSE 65–75; TEMP 97.2–98.5
[2018-03-21 08:53] LABS: BASO % 0.4 % (0.0-2.0); EOS # 0.2 (0.0-0.7); EOS % 2.3 % (0-4.0); GRAN # 8.7 (1.4-6.5); LYMPH # 0.5 (1.2-3.4); LYMPH % 4.7 % (20.0-51.0); MEAN CELL VOLUME 83 fl (80.0-100.0); MEAN CORPUSCULAR HGB CONC 30 g/dl (33.0-37.0); MEAN PLATELET VOLUME 8.8 fl (7.4-10.4); MONO # 0.8 (0.1-0.6); PLATELET COUNT 365 K/mm3 (130-400); RED BLOOD COUNT 3.06 M/mm3 (4.10-5.30); REDCELL DISTRIBUTION WIDTH-CV 16.7 % (11.5-14.5)
[2018-03-21 08:54] LABS: HEMATOCRIT 25.4 % (37.0-47.0); HEMOGLOBIN 7.6 g/dl (12.5-16.0); MEAN CORPUSCULAR HEMOGLOBIN 25 pg (27.0-31.0)
[2018-03-21 09:02] LABS: CREATININE, serum 2.39 mg/dL (0.52-1.25); POTASSIUM 3.7 mmol/L (3.4-5.0)
[2018-03-21 20:37] LABS: HEMATOCRIT 28.4 % (37.0-47.0); HEMOGLOBIN 8.8 g/dl (12.5-16.0)
[2018-03-22 03:57] VITALS: BP 110/57; PULSE 84; TEMP 97.4
[2018-03-22 06:35] LABS: BASO # 0.1 (0.0-0.2); BASO % 0.5 % (0.0-2.0); EOS # 0.3 (0.0-0.7); EOS % 3.1 % (0-4.0); GRAN # 8.6 (1.4-6.5); GRAN % 80.1 % (42.2-75.2); LYMPH # 0.7 (1.2-3.4); LYMPH % 6.8 % (20.0-51.0); MEAN CELL VOLUME 82 fl (80.0-100.0); MEAN CORPUSCULAR HGB CONC 31 g/dl (33.0-37.0); MEAN PLATELET VOLUME 8.9 fl (7.4-10.4); PLATELET COUNT 333 K/mm3 (130-400); RED BLOOD COUNT 3.54 M/mm3 (4.10-5.30); REDCELL DISTRIBUTION WIDTH-CV 16.3 % (11.5-14.5)
[2018-03-22 06:41] LABS: HEMOGLOBIN 9.1 g/dl (12.5-16.0); MEAN CORPUSCULAR HEMOGLOBIN 26 pg (27.0-31.0)
[2018-03-22 06:47] LABS: CALCIUM 8.1 mg/dL (8.4-10.2); CREATININE, serum 2.14 mg/dL (0.52-1.25); POTASSIUM 3.3 mmol/L (3.4-5.0)
[2018-03-22 07:17] VITALS: BP 139/43; PULSE 80; TEMP 97.7
[2018-03-22 11:13] VITALS: BP 157/84; PULSE 75; TEMP 98.1
[2018-03-22 14:54] VITALS: BP 146/47; PULSE 61; TEMP 97.7
[2018-03-23 00:03] VITALS: BP 128/98; PULSE 75; TEMP 97.7
[2018-03-23 05:00] VITALS: BP 158/62; PULSE 76; TEMP 98.3
[2018-03-23 06:23] LABS: BASO # 0.1 (0.0-0.2); BASO % 0.4 % (0.0-2.0); EOS # 0.4 (0.0-0.7); EOS % 3.2 % (0-4.0); GRAN # 9.1 (1.4-6.5); LYMPH # 0.6 (1.2-3.4); LYMPH % 5.7 % (20.0-51.0); MEAN CELL VOLUME 82 fl (80.0-100.0); MEAN CORPUSCULAR HGB CONC 30 g/dl (33.0-37.0); MEAN PLATELET VOLUME 9.1 fl (7.4-10.4); MONO # 0.9 (0.1-0.6); MONO % 8.2 % (1.7-9.3); PLATELET COUNT 296 K/mm3 (130-400); RED BLOOD COUNT 3.63 M/mm3 (4.10-5.30); REDCELL DISTRIBUTION WIDTH-CV 16.6 % (11.5-14.5)
[2018-03-23 06:26] LABS: HEMATOCRIT 29.9 % (37.0-47.0); MEAN CORPUSCULAR HEMOGLOBIN 25 pg (27.0-31.0)
[2018-03-23 06:54] LABS: CALCIUM 8.2 mg/dL (8.4-10.2); CREATININE, serum 1.84 mg/dL (0.52-1.25); POTASSIUM 3.4 mmol/L (3.4-5.0)
[2018-03-23 07:51] VITALS: BP 177/70; PULSE 82; TEMP 98.5
[2018-03-23] MEDS ORDERED: AMOXICILLIN/CLA1 TA1 PO (09:19)
[2018-03-23] MEDS ORDERED: LEVAQUIN 2250 MG/TAB PO (09:19)
[2018-03-23] MEDS ORDERED: PROTONIX 40MG T40 MG PO (09:21)
== END 2018-03-23 12:50 | DRG 871 ==
LOC: COL.ER 09:12 → ICU 11:49 → MEDICAL 17:28 → ICU 17:28 → MEDICAL 03-20 17:00
PROVIDERS: Emergency Medicine; Hospitalist; Internal Medicine Gastroenterology; Physician Assistant
PROC: 0W993ZX Drainage of Right Pleural Cavity, Percutaneous Approach, Diagnostic (ICD-10-PCS; 2018-03-20)
PROC: 0D578ZZ Destruction of Stomach, Pylorus, Via Natural or Artificial Opening Endoscopic (ICD-10-PCS; principal; 2018-03-22 11:30)
PROC: 0DBN8ZX Excision of Sigmoid Colon, Via Natural or Artificial Opening Endoscopic, Diagnostic (ICD-10-PCS; 2018-03-22 11:30)
DX: A41.9 Sepsis, unspecified organism (principal); I21.A1 Myocardial infarction type 2; D62 Acute posthemorrhagic anemia; N17.9 Acute kidney failure, unspecified; Z66 Do not resuscitate; J90 Pleural effusion, not elsewhere classified; I69.354 Hemiplegia and hemiparesis following cerebral infarction affecting left non-dominant side; N39.0 Urinary tract infection, site not specified; E87.1 Hypo-osmolality and hyponatremia; E87.2 Acidosis; C18.7 Malignant neoplasm of sigmoid colon; K31.819 Angiodysplasia of stomach and duodenum without bleeding; I12.9 Hypertensive chronic kidney disease with stage 1 through stage 4 chronic kidney disease, or unspecified chronic kidney disease; E11.22 Type 2 diabetes mellitus with diabetic chronic kidney disease; N18.3 Chronic kidney disease, stage 3 (moderate); J44.9 Chronic obstructive pulmonary disease, unspecified; Z79.4 Long term (current) use of insulin; E11.65 Type 2 diabetes mellitus with hyperglycemia; E78.5 Hyperlipidemia, unspecified; D50.0 Iron deficiency anemia secondary to blood loss (chronic); B96.1 Klebsiella pneumoniae [K. pneumoniae] as the cause of diseases classified elsewhere; B95.2 Enterococcus as the cause of diseases classified elsewhere
CPT/HCPCS: 99223-AI; 99233-AI; 99239; C1751; C9113; J1815; J1940; J2405; J2543; J2704; J3370; J7030; J7050; P9016

== ENCOUNTER → 2018-03-28 | Outpatient (CLI) | payer MEDICARE, OTHER ==
[~2018-03-28] MED LIST changes: +AMOXICILLIN/CLA1 TA1 PO; +LEVAQUIN 2250 MG/TAB PO
[2018-03-28 11:02] LABS: BASO # 0.1 (0.0-0.2); BASO % 0.6 % (0.0-2.0); EOS # 0.3 (0.0-0.7); EOS % 2.8 % (0-4.0); GRAN # 9.2 (1.4-6.5); GRAN % 80.6 % (42.2-75.2); LYMPH # 0.9 (1.2-3.4); LYMPH % 7.4 % (20.0-51.0); MEAN CELL VOLUME 82 fl (80.0-100.0); MEAN CORPUSCULAR HGB CONC 30 g/dl (33.0-37.0); MEAN PLATELET VOLUME 9.3 fl (7.4-10.4); MONO # 0.9 (0.1-0.6); MONO % 8.1 % (1.7-9.3); PLATELET COUNT 198 K/mm3 (130-400); RED BLOOD COUNT 3.35 M/mm3 (4.10-5.30); REDCELL DISTRIBUTION WIDTH-CV 16.7 % (11.5-14.5)
[2018-03-28 11:11] LABS: HEMATOCRIT 27.6 % (37.0-47.0); HEMOGLOBIN 8.4 g/dl (12.5-16.0); MEAN CORPUSCULAR HEMOGLOBIN 25 pg (27.0-31.0)
== END ==
LOC: ZLAB.STJ 10:45
PROVIDERS: Internal Medicine
DX: D64.9 Anemia, unspecified (principal)

== ENCOUNTER → 2018-04-05 | Outpatient (CLI) | payer MEDICARE, OTHER ==
[2018-04-05 10:09] LABS: COLLECTION METHOD CLEAN CATCH
[2018-04-05 10:32] LABS: PH 5 (5-8); URINE APPEARANCE Hazy; URINE BACTERIA Rare /hpf; URINE BILIRUBIN Negative (NEGATIVE); URINE BLOOD 1+ (NEGATIVE); URINE COLOR Yellow; URINE GLUCOSE 1+ (NEGATIVE); URINE KETONE Negative (NEGATIVE); URINE LEUKOCYTE ESTERASE 1+ (NEGATIVE); URINE NITRATE Negative (NEGATIVE); URINE PROTEIN(semi-quant) 3+ (NEGATIVE); URINE UROBILINOGEN Negative (NEGATIVE)
== END ==
LOC: ZLAB.STJ 10:02
PROVIDERS: Internal Medicine
DX: N39.0 Urinary tract infection, site not specified (principal)

== ENCOUNTER 2018-04-09 19:52 | Emergency (ER) | payer MEDICARE, OTHER ==
[~2018-04-09] VITALS: Ht 154.9 cm; Wt 81.8 kg
[2018-04-09 20:42] LABS: HEMATOCRIT 28.2 % (37.0-47.0); HEMOGLOBIN 8.4 g/dl (12.5-16.0); MEAN CELL VOLUME 83 fl (80.0-100.0); MEAN CORPUSCULAR HEMOGLOBIN 25 pg (27.0-31.0); MEAN CORPUSCULAR HGB CONC 30 g/dl (33.0-37.0); MEAN PLATELET VOLUME 8.9 fl (7.4-10.4); PLATELET COUNT 336 K/mm3 (130-400); RED BLOOD COUNT 3.41 M/mm3 (4.10-5.30); REDCELL DISTRIBUTION WIDTH-CV 17.7 % (11.5-14.5)
[2018-04-09 20:48] LABS: INR 1.1 (0.8-3.0); PROTHROMBIN TIME 12.5 SECONDS (9.7-12.8)
[2018-04-09 20:57] LABS: ALBUMIN 3.5 gm/dL (3.5-5.0); BILIRUBIN,TOTAL 0.3 mg/dL (0.0-1.0); CALCIUM 8.3 mg/dL (8.4-10.2); CREATININE, serum 1.84 mg/dL (0.52-1.25); POTASSIUM 3.6 mmol/L (3.4-5.0); TOTAL PROTEIN 7.4 gm/dL (6.4-8.2)
[2018-04-09 21:01] LABS: BAND 10 % (0-10); EOSINOPHIL 1 % (0-4); LYMPHOCYTE 2 % (20.0-51.0); NEUTROPHILS 85 % (42.0-75.2); PLATELET ESTIMATE NORMAL (NORMAL)
[2018-04-09 21:02] LABS: ANISOCYTOSIS 2+; OVALOCYTES 1+; POIKILOCYTOSIS 1+
[2018-04-09 21:03] LABS: HYPOCHROMIA 1+
[2018-04-09 21:19] LABS: TROPONIN-I 0.114 ng/mL (0.000-0.034)
[2018-04-09 22:30] VITALS: BP 148/77; PULSE 78
== END 2018-04-09 22:30 | disposition short-term general hospital (02) ==
LOC: COL.ER 19:52
PROVIDERS: Family Medicine
DX: J81.1 Chronic pulmonary edema (principal); I11.0 Hypertensive heart disease with heart failure; I50.9 Heart failure, unspecified; I25.10 Atherosclerotic heart disease of native coronary artery without angina pectoris; Z85.038 Personal history of other malignant neoplasm of large intestine; Z79.891 Long term (current) use of opiate analgesic; Z79.4 Long term (current) use of insulin
CPT/HCPCS: J1940; J2185; J3370; J7050

== ENCOUNTER → 2018-04-19 | Outpatient (REF) ==
[2018-04-19 09:31] LABS: BASO # 0.1 (0.0-0.2); BASO % 1.1 % (0.0-2.0); EOS # 0.5 (0.0-0.7); EOS % 4.2 % (0-4.0); GRAN # 8.3 (1.4-6.5); GRAN % 76.1 % (42.2-75.2); LYMPH # 1.1 (1.2-3.4); LYMPH % 9.7 % (20.0-51.0); MEAN CELL VOLUME 83 fl (80.0-100.0); MEAN CORPUSCULAR HGB CONC 31 g/dl (33.0-37.0); MEAN PLATELET VOLUME 9.7 fl (7.4-10.4); MONO # 0.9 (0.1-0.6); PLATELET COUNT 288 K/mm3 (130-400); RED BLOOD COUNT 3.18 M/mm3 (4.10-5.30); REDCELL DISTRIBUTION WIDTH-CV 17.6 % (11.5-14.5)
[2018-04-19 09:39] LABS: HEMATOCRIT 26.3 % (37.0-47.0); HEMOGLOBIN 8.1 g/dl (12.5-16.0); MEAN CORPUSCULAR HEMOGLOBIN 25 pg (27.0-31.0)
[2018-04-19 09:46] LABS: ALBUMIN 3.1 gm/dL (3.5-5.0); BILIRUBIN,TOTAL 0.2 mg/dL (0.0-1.0); CALCIUM 8.6 mg/dL (8.4-10.2); CREATININE, serum 1.88 mg/dL (0.52-1.25); POTASSIUM 4.8 mmol/L (3.4-5.0); TOTAL PROTEIN 6.5 gm/dL (6.4-8.2)
== END ==
LOC: ZLAB.STJ 09:25
PROVIDERS: Internal Medicine
DX: I10 Essential (primary) hypertension (principal)

== ENCOUNTER → 2018-04-20 | Outpatient (REF) | LOC: ZLAB.STJ 14:28 | DX: E03.9 Hypothyroidism, unspecified (principal) ==

== ENCOUNTER → 2018-05-14 | Outpatient (CLI) | payer MEDICARE, OTHER ==
[2018-05-14 10:11] LABS: MEAN CELL VOLUME 84 fl (80.0-100.0); MEAN CORPUSCULAR HGB CONC 31 g/dl (33.0-37.0); MEAN PLATELET VOLUME 8.7 fl (7.4-10.4); PLATELET COUNT 302 K/mm3 (130-400); REDCELL DISTRIBUTION WIDTH-CV 17.8 % (11.5-14.5)
[2018-05-14 10:13] LABS: HEMATOCRIT 23.4 % (37.0-47.0); HEMOGLOBIN 7.2 g/dl (12.5-16.0); MEAN CORPUSCULAR HEMOGLOBIN 26 pg (27.0-31.0)
[2018-05-14 10:18] LABS: ALBUMIN 3.1 gm/dL (3.5-5.0); BILIRUBIN,TOTAL 0.1 mg/dL (0.0-1.0); CALCIUM 8.5 mg/dL (8.4-10.2); CREATININE, serum 2.07 mg/dL (0.52-1.25); POTASSIUM 4.7 mmol/L (3.4-5.0); TOTAL PROTEIN 6.8 gm/dL (6.4-8.2)
== END ==
LOC: ZLAB.STJ 09:58
PROVIDERS: Internal Medicine
DX: R79.89 Other specified abnormal findings of blood chemistry (principal); R68.89 Other general symptoms and signs

== ENCOUNTER 2018-05-18 13:21 | Outpatient (RCR) | payer MEDICARE, OTHER ==
[~2018-05-18] VITALS: Ht 154.9 cm; Wt 83.2 kg
[2018-05-18] VITALS (7 sets, daily range): BP systolic 141–156; BP diastolic 49–69; PULSE 59–73; TEMP 97.4–98
[~2018-05-18 13:21] MED LIST changes: -COREG12.5 MG PO; -IMDUR 30MG30 MG/TAB PO; -NATURAL IRON65 MG PO; -ZOFRAN ODT4 MG PO
[2018-05-18] MEDS ORDERED: COREG12.5 MG PO (15:00)
[2018-05-18] MEDS ORDERED: IMDUR 30MG30 MG/TAB PO (15:05)
[2018-05-18] MEDS ORDERED: NATURAL IRON65 MG PO (15:11)
[2018-05-18] MEDS ORDERED: ZOFRAN ODT4 MG PO (15:23)
== END 2018-05-18 18:00 ==
LOC: EUO 13:21
DX: C18.9 Malignant neoplasm of colon, unspecified (principal); D50.0 Iron deficiency anemia secondary to blood loss (chronic); K31.811 Angiodysplasia of stomach and duodenum with bleeding; I25.10 Atherosclerotic heart disease of native coronary artery without angina pectoris; Z79.82 Long term (current) use of aspirin; Z79.4 Long term (current) use of insulin; Z79.899 Other long term (current) drug therapy
CPT/HCPCS: J1940; J7050; P9016

== ENCOUNTER → 2018-05-18 | Outpatient (CLI) | payer MEDICARE, OTHER ==
[~2018-05-18] MED LIST changes: +COREG12.5 MG PO; +IMDUR 30MG30 MG/TAB PO; +NATURAL IRON65 MG PO; +ZOFRAN ODT4 MG PO
[2018-05-18 11:40] LABS: BASO # 0.1 (0.0-0.2); EOS # 0.5 (0.0-0.7); EOS % 8.8 % (0-4.0); GRAN # 3.7 (1.4-6.5); GRAN % 63.2 % (42.2-75.2); LYMPH # 0.8 (1.2-3.4); LYMPH % 13.6 % (20.0-51.0); MEAN CELL VOLUME 84 fl (80.0-100.0); MEAN CORPUSCULAR HGB CONC 31 g/dl (33.0-37.0); MEAN PLATELET VOLUME 9.1 fl (7.4-10.4); MONO # 0.8 (0.1-0.6); MONO % 12.7 % (1.7-9.3); PLATELET COUNT 323 K/mm3 (130-400); REDCELL DISTRIBUTION WIDTH-CV 17.9 % (11.5-14.5)
[2018-05-18 11:48] LABS: ALBUMIN 3.1 gm/dL (3.5-5.0); BILIRUBIN,TOTAL 0.1 mg/dL (0.0-1.0); CALCIUM 8.8 mg/dL (8.4-10.2); CREATININE, serum 1.92 mg/dL (0.52-1.25); POTASSIUM 4.7 mmol/L (3.4-5.0); TOTAL PROTEIN 6.7 gm/dL (6.4-8.2)
[2018-05-18 12:00] LABS: HEMATOCRIT 20.1 % (37.0-47.0); HEMOGLOBIN 6.2 g/dl (12.5-16.0); MEAN CORPUSCULAR HEMOGLOBIN 26 pg (27.0-31.0)
== END ==
LOC: COL.LAB 11:06
PROVIDERS: Internal Medicine
DX: E11.9 Type 2 diabetes mellitus without complications (principal)

== ENCOUNTER → 2018-05-23 | Outpatient (CLI) | payer MEDICARE, OTHER ==
[~2018-05-23] MED LIST changes: +COREG12.5 MG PO; +IMDUR 30MG30 MG/TAB PO; +NATURAL IRON65 MG PO; +ZOFRAN ODT4 MG PO
[2018-05-23 19:49] LABS: BASO # 0.1 (0.0-0.2); BASO % 0.6 % (0.0-2.0); EOS # 0.5 (0.0-0.7); EOS % 6.3 % (0-4.0); GRAN # 6.1 (1.4-6.5); GRAN % 72.3 % (42.2-75.2); HEMATOCRIT 27.7 % (37.0-47.0); HEMOGLOBIN 8.8 g/dl (12.5-16.0); MEAN CELL VOLUME 84 fl (80.0-100.0); MEAN CORPUSCULAR HEMOGLOBIN 27 pg (27.0-31.0); MEAN CORPUSCULAR HGB CONC 32 g/dl (33.0-37.0); MEAN PLATELET VOLUME 8.9 fl (7.4-10.4); MONO # 0.7 (0.1-0.6); MONO % 8.3 % (1.7-9.3); PLATELET COUNT 342 K/mm3 (130-400); RED BLOOD COUNT 3.31 M/mm3 (4.10-5.30); REDCELL DISTRIBUTION WIDTH-CV 17.7 % (11.5-14.5)
[2018-05-23 19:54] LABS: ALBUMIN 3.5 gm/dL (3.5-5.0); BILIRUBIN,TOTAL 0.1 mg/dL (0.0-1.0); CALCIUM 8.9 mg/dL (8.4-10.2); CREATININE, serum 2.23 mg/dL (0.52-1.25); POTASSIUM 4.1 mmol/L (3.4-5.0); TOTAL PROTEIN 7.1 gm/dL (6.4-8.2)
== END ==
LOC: ZCOL.LAB 19:07
PROVIDERS: Internal Medicine
DX: I10 Essential (primary) hypertension (principal); R78.89 Finding of other specified substances, not normally found in blood

== ENCOUNTER → 2018-06-07 | Outpatient (REF) ==
[2018-06-07 14:03] LABS: BASO # 0.1 (0.0-0.2); EOS # 0.5 (0.0-0.7); EOS % 8.1 % (0-4.0); GRAN # 4.4 (1.4-6.5); GRAN % 70.4 % (42.2-75.2); LYMPH # 0.7 (1.2-3.4); LYMPH % 11.8 % (20.0-51.0); MEAN CELL VOLUME 85 fl (80.0-100.0); MEAN CORPUSCULAR HGB CONC 31 g/dl (33.0-37.0); MEAN PLATELET VOLUME 8.9 fl (7.4-10.4); MONO # 0.5 (0.1-0.6); MONO % 8.4 % (1.7-9.3); PLATELET COUNT 296 K/mm3 (130-400); RED BLOOD COUNT 2.86 M/mm3 (4.10-5.30); REDCELL DISTRIBUTION WIDTH-CV 17.2 % (11.5-14.5)
[2018-06-07 14:04] LABS: HEMATOCRIT 24.4 % (37.0-47.0); HEMOGLOBIN 7.6 g/dl (12.5-16.0); MEAN CORPUSCULAR HEMOGLOBIN 27 pg (27.0-31.0)
[2018-06-07 14:30] LABS: CALCIUM 8.6 mg/dL (8.4-10.2); CREATININE, serum 2.2 mg/dL (0.52-1.25); POTASSIUM 5.1 mmol/L (3.4-5.0)
== END ==
LOC: ZLAB.STJ 13:46
PROVIDERS: Internal Medicine
DX: I10 Essential (primary) hypertension (principal); D64.9 Anemia, unspecified; I27.20 Pulmonary hypertension, unspecified

== ENCOUNTER → 2018-06-19 | Outpatient (CLI) | payer MEDICARE, OTHER ==
[2018-06-19 18:13] LABS: CALCIUM 8.9 mg/dL (8.4-10.2); CREATININE, serum 2.32 mg/dL (0.52-1.25); POTASSIUM 5.2 mmol/L (3.4-5.0)
[2018-06-20 14:52] LABS: BASO # 0.1 (0.0-0.2); EOS # 0.4 (0.0-0.7); EOS % 5.9 % (0-4.0); GRAN # 5.3 (1.4-6.5); GRAN % 72.1 % (42.2-75.2); LYMPH # 0.9 (1.2-3.4); LYMPH % 12.8 % (20.0-51.0); MEAN CELL VOLUME 86 fl (80.0-100.0); MEAN CORPUSCULAR HGB CONC 31 g/dl (33.0-37.0); MEAN PLATELET VOLUME 9.4 fl (7.4-10.4); MONO # 0.6 (0.1-0.6); MONO % 7.8 % (1.7-9.3); PLATELET COUNT 307 K/mm3 (130-400); RED BLOOD COUNT 3.33 M/mm3 (4.10-5.30); REDCELL DISTRIBUTION WIDTH-CV 16.4 % (11.5-14.5)
[2018-06-20 14:53] LABS: HEMATOCRIT 28.7 % (37.0-47.0); HEMOGLOBIN 8.9 g/dl (12.5-16.0); MEAN CORPUSCULAR HEMOGLOBIN 27 pg (27.0-31.0)
[2018-06-20 14:57] LABS: CALCIUM 8.9 mg/dL (8.4-10.2); CREATININE, serum 2.17 mg/dL (0.52-1.25); POTASSIUM 5.2 mmol/L (3.4-5.0)
[2018-06-20 15:27] LABS: THYROID STIMULATING HORMONE 0.945 uIU/mL (0.465-4.680)
== END ==
LOC: ZLAB.STJ 16:46 → ZCOL.LAB 16:46
PROVIDERS: Internal Medicine
DX: I50.33 Acute on chronic diastolic (congestive) heart failure (principal); D64.9 Anemia, unspecified; E11.9 Type 2 diabetes mellitus without complications; E03.9 Hypothyroidism, unspecified; I27.20 Pulmonary hypertension, unspecified

== ENCOUNTER → 2018-06-20 | Outpatient (CLI) | payer MEDICARE, OTHER | LOC: ZLAB.STJ 15:15 | DX: I50.33 Acute on chronic diastolic (congestive) heart failure (principal); E11.9 Type 2 diabetes mellitus without complications; E03.9 Hypothyroidism, unspecified; R53.1 Weakness; I27.20 Pulmonary hypertension, unspecified ==

== ENCOUNTER → 2018-06-21 | Outpatient (CLI) | payer MEDICARE, OTHER ==
[2018-06-21 11:31] LABS: COLLECTION METHOD CLEAN CATCH
[2018-06-21 11:53] LABS: PH 5 (5-8); URINE APPEARANCE Turbid; URINE BACTERIA Rare /hpf; URINE BILIRUBIN Negative (NEGATIVE); URINE BLOOD 2+ (NEGATIVE); URINE COLOR Yellow; URINE GLUCOSE 1+ (NEGATIVE); URINE KETONE Negative (NEGATIVE); URINE LEUKOCYTE ESTERASE 3+ (NEGATIVE); URINE NITRATE Negative (NEGATIVE); URINE PROTEIN(semi-quant) 2+ (NEGATIVE); URINE RBC 20-50 /hpf; URINE UROBILINOGEN Negative (NEGATIVE)
== END ==
LOC: ZLAB.STJ 11:11
PROVIDERS: Internal Medicine
DX: R82.90 Unspecified abnormal findings in urine (principal)

== ENCOUNTER → 2018-07-04 | Outpatient (CLI) | payer MEDICARE, OTHER ==
[2018-07-04 11:07] LABS: COLLECTION METHOD CLEAN CATCH
[2018-07-04 11:20] LABS: PH 5 (5-8); URINE APPEARANCE Turbid; URINE BACTERIA None Seen /hpf; URINE BILIRUBIN Negative (NEGATIVE); URINE BLOOD 1+ (NEGATIVE); URINE COLOR Amber; URINE GLUCOSE 1+ (NEGATIVE); URINE KETONE Negative (NEGATIVE); URINE LEUKOCYTE ESTERASE 2+ (NEGATIVE); URINE NITRATE Negative (NEGATIVE); URINE PROTEIN(semi-quant) 2+ (NEGATIVE); URINE UROBILINOGEN Negative (NEGATIVE); URINE WBC >50 /hpf
== END ==
LOC: ZCOL.LAB 10:05
PROVIDERS: Internal Medicine
DX: N39.0 Urinary tract infection, site not specified (principal)

== ENCOUNTER → 2018-07-06 | Outpatient (CLI) | payer MEDICARE, OTHER | LOC: ZLAB.STJ 10:37 | DX: E55.9 Vitamin D deficiency, unspecified (principal); R68.89 Other general symptoms and signs; R79.89 Other specified abnormal findings of blood chemistry ==

== ENCOUNTER → 2018-07-11 | Outpatient (CLI) | payer MEDICARE, OTHER ==
[2018-07-11 14:45] LABS: CALCIUM 8.8 mg/dL (8.4-10.2); CREATININE, serum 2.57 mg/dL (0.52-1.25); POTASSIUM 5.3 mmol/L (3.4-5.0)
[2018-07-11 14:51] LABS: HEMATOCRIT 24.1 % (37.0-47.0); HEMOGLOBIN 7.4 g/dl (12.5-16.0)
== END ==
LOC: ZCOL.LAB 14:00
PROVIDERS: Internal Medicine
DX: D64.9 Anemia, unspecified (principal); E11.9 Type 2 diabetes mellitus without complications

== ENCOUNTER 2018-07-16 08:21 | Outpatient (RCR) | payer MEDICARE, OTHER ==
[2018-07-16] VITALS (9 sets, daily range): BP systolic 142–164; BP diastolic 63–81; PULSE 57–64; TEMP 97.6–99.1
[~2018-07-16] VITALS: Ht 154.9 cm; Wt 80.0 kg
[2018-07-16] MEDS ORDERED: ASPIRIN 81M81 MG/TA2 PO (09:16)
[2018-07-16 10:43] LABS: CALCIUM 8.9 mg/dL (8.4-10.2); CREATININE, serum 2.38 mg/dL (0.52-1.25); POTASSIUM 4.9 mmol/L (3.4-5.0)
[2018-07-16] MEDS ORDERED: MACROBID 1100 MG/CAP PO (10:50)
--- NOTE | 2018-07-16 16:35 | NUR ---
Pt jordan blood well. Pt discharged per w/c with [facility] transportation.
== END 2018-07-16 17:27 | disposition home or self-care (01) ==
LOC: EUO 08:21
PROVIDERS: Internal Medicine
DX: I25.10 Atherosclerotic heart disease of native coronary artery without angina pectoris (principal); D64.9 Anemia, unspecified
CPT/HCPCS: J7050; P9016

== ENCOUNTER → 2018-07-20 | Outpatient (CLI) | payer MEDICARE, OTHER ==
[~2018-07-20] MED LIST changes: +ASPIRIN 81M81 MG/TA2 PO; +MACROBID 1100 MG/CAP PO
[2018-07-20 11:39] LABS: BASO # 0.1 (0.0-0.2); BASO % 0.8 % (0.0-2.0); EOS # 0.3 (0.0-0.7); EOS % 3.8 % (0-4.0); GRAN # 5.1 (1.4-6.5); GRAN % 72.2 % (42.2-75.2); LYMPH # 0.7 (1.2-3.4); LYMPH % 10.3 % (20.0-51.0); MEAN CELL VOLUME 89 fl (80.0-100.0); MEAN CORPUSCULAR HGB CONC 31 g/dl (33.0-37.0); MEAN PLATELET VOLUME 9.7 fl (7.4-10.4); MONO # 0.9 (0.1-0.6); MONO % 12.5 % (1.7-9.3); PLATELET COUNT 231 K/mm3 (130-400); RED BLOOD COUNT 3.23 M/mm3 (4.10-5.30); REDCELL DISTRIBUTION WIDTH-CV 15.8 % (11.5-14.5)
[2018-07-20 11:47] LABS: HEMATOCRIT 28.8 % (37.0-47.0); MEAN CORPUSCULAR HEMOGLOBIN 28 pg (27.0-31.0)
== END ==
LOC: ZLAB.STJ 11:08
PROVIDERS: Internal Medicine
DX: D64.9 Anemia, unspecified (principal)

== ENCOUNTER → 2018-07-30 | Outpatient (CLI) | payer MEDICARE, OTHER ==
[2018-07-30 10:45] LABS: BASO # 0.1 (0.0-0.2); BASO % 0.7 % (0.0-2.0); EOS # 0.4 (0.0-0.7); EOS % 5.2 % (0-4.0); GRAN # 4.5 (1.4-6.5); GRAN % 67.4 % (42.2-75.2); LYMPH # 0.9 (1.2-3.4); LYMPH % 12.8 % (20.0-51.0); MEAN CELL VOLUME 86 fl (80.0-100.0); MEAN CORPUSCULAR HGB CONC 32 g/dl (33.0-37.0); MONO # 0.9 (0.1-0.6); PLATELET COUNT 367 K/mm3 (130-400); RED BLOOD COUNT 2.96 M/mm3 (4.10-5.30); REDCELL DISTRIBUTION WIDTH-CV 14.6 % (11.5-14.5)
[2018-07-30 10:46] LABS: HEMATOCRIT 25.3 % (37.0-47.0); MEAN CORPUSCULAR HEMOGLOBIN 27 pg (27.0-31.0)
[2018-07-30 10:56] LABS: CREATININE, serum 2.46 mg/dL (0.52-1.25); POTASSIUM 5.3 mmol/L (3.4-5.0)
== END ==
LOC: ZLAB.STJ 09:30
PROVIDERS: Internal Medicine
DX: D64.9 Anemia, unspecified (principal); E11.9 Type 2 diabetes mellitus without complications

== ENCOUNTER → 2018-08-06 | Outpatient (CLI) | payer MEDICARE, OTHER ==
[2018-08-06 11:27] LABS: BASO # 0.1 (0.0-0.2); BASO % 0.7 % (0.0-2.0); EOS # 0.3 (0.0-0.7); EOS % 4.1 % (0-4.0); GRAN # 5.5 (1.4-6.5); GRAN % 72.8 % (42.2-75.2); LYMPH # 0.9 (1.2-3.4); LYMPH % 11.9 % (20.0-51.0); MEAN CELL VOLUME 85 fl (80.0-100.0); MEAN CORPUSCULAR HGB CONC 32 g/dl (33.0-37.0); MEAN PLATELET VOLUME 9.1 fl (7.4-10.4); MONO # 0.7 (0.1-0.6); MONO % 9.7 % (1.7-9.3); PLATELET COUNT 343 K/mm3 (130-400); RED BLOOD COUNT 2.86 M/mm3 (4.10-5.30); REDCELL DISTRIBUTION WIDTH-CV 14.3 % (11.5-14.5)
[2018-08-06 11:30] LABS: HEMATOCRIT 24.4 % (37.0-47.0); HEMOGLOBIN 7.7 g/dl (12.5-16.0); MEAN CORPUSCULAR HEMOGLOBIN 27 pg (27.0-31.0)
[2018-08-06 11:38] LABS: CREATININE, serum 2.56 mg/dL (0.52-1.25)
== END ==
LOC: ZLAB.STJ 10:54
PROVIDERS: Internal Medicine
DX: E11.9 Type 2 diabetes mellitus without complications (principal); I27.20 Pulmonary hypertension, unspecified

== ENCOUNTER → 2018-08-13 | Outpatient (CLI) | payer MEDICARE, OTHER ==
[2018-08-13 12:40] LABS: BASO # 0.1 (0.0-0.2); BASO % 0.7 % (0.0-2.0); EOS # 0.3 (0.0-0.7); EOS % 4.3 % (0-4.0); GRAN # 4.8 (1.4-6.5); GRAN % 70.8 % (42.2-75.2); LYMPH % 15.1 % (20.0-51.0); MEAN CELL VOLUME 87 fl (80.0-100.0); MEAN CORPUSCULAR HGB CONC 31 g/dl (33.0-37.0); MEAN PLATELET VOLUME 9.5 fl (7.4-10.4); MONO # 0.6 (0.1-0.6); MONO % 8.7 % (1.7-9.3); PLATELET COUNT 282 K/mm3 (130-400); RED BLOOD COUNT 2.65 M/mm3 (4.10-5.30); REDCELL DISTRIBUTION WIDTH-CV 14.7 % (11.5-14.5)
[2018-08-13 12:43] LABS: HEMOGLOBIN 7.2 g/dl (12.5-16.0); MEAN CORPUSCULAR HEMOGLOBIN 27 pg (27.0-31.0)
[2018-08-13 12:59] LABS: ALANINE AMINOTRANSFERASE 26 U/L (9-52); ALKALINE PHOSPHATASE 93 U/L (50-136); ANION GAP 7 mmol/L (7-16); AST,SGOT 20 U/L (15-37); BILIRUBIN,TOTAL < 0.1 mg/dL (0.0-1.0); BLOOD UREA NITROGEN 70 mg/dL (7-17); CALCIUM 8.6 mg/dL (8.4-10.2); CARBON DIOXIDE 20 mmol/L (22-30); CHLORIDE 112 mmol/L (98-107); CREATININE, serum 2.27 mg/dL (0.52-1.25); GLUCOSE 123 mg/dL (74-106); POTASSIUM 5.4 mmol/L (3.4-5.0); SODIUM 138 mmol/L (137-145); TOTAL PROTEIN 6.6 gm/dL (6.4-8.2)
== END ==
LOC: ZLAB.STJ 10:30
PROVIDERS: Internal Medicine
DX: D64.9 Anemia, unspecified (principal)

== ENCOUNTER → 2018-08-20 | Outpatient (CLI) | payer MEDICARE, OTHER ==
[2018-08-20 11:27] LABS: CALCIUM 8.8 mg/dL (8.4-10.2); CREATININE, serum 2.36 mg/dL (0.52-1.25); POTASSIUM 4.6 mmol/L (3.4-5.0)
== END ==
LOC: ZCOL.LAB 09:56 → ZLAB.STJ 09:56
PROVIDERS: Internal Medicine
DX: I10 Essential (primary) hypertension (principal); D64.9 Anemia, unspecified

== ENCOUNTER → 2018-08-21 | Outpatient (CLI) | payer MEDICARE, OTHER ==
[2018-08-21 10:51] LABS: BASO # 0.1 (0.0-0.2); BASO % 0.9 % (0.0-2.0); EOS # 0.4 (0.0-0.7); EOS % 6.1 % (0-4.0); GRAN # 3.8 (1.4-6.5); GRAN % 66.4 % (42.2-75.2); LYMPH # 0.9 (1.2-3.4); LYMPH % 15.6 % (20.0-51.0); MEAN CELL VOLUME 88 fl (80.0-100.0); MEAN CORPUSCULAR HGB CONC 31 g/dl (33.0-37.0); MEAN PLATELET VOLUME 9.1 fl (7.4-10.4); MONO # 0.6 (0.1-0.6); MONO % 10.7 % (1.7-9.3); PLATELET COUNT 275 K/mm3 (130-400); REDCELL DISTRIBUTION WIDTH-CV 15.4 % (11.5-14.5)
[2018-08-21 10:52] LABS: HEMATOCRIT 25.5 % (37.0-47.0); HEMOGLOBIN 7.8 g/dl (12.5-16.0); MEAN CORPUSCULAR HEMOGLOBIN 27 pg (27.0-31.0)
== END ==
LOC: ZLAB.STJ 10:08
PROVIDERS: Internal Medicine
DX: D64.9 Anemia, unspecified (principal)

== ENCOUNTER → 2018-08-30 | Outpatient (CLI) | payer MEDICARE, OTHER ==
[2018-08-30 16:21] LABS: MEAN CELL VOLUME 89 fl (80.0-100.0); MEAN CORPUSCULAR HGB CONC 31 g/dl (33.0-37.0); MEAN PLATELET VOLUME 9.2 fl (7.4-10.4); PLATELET COUNT 286 K/mm3 (130-400); RED BLOOD COUNT 2.27 M/mm3 (4.10-5.30); REDCELL DISTRIBUTION WIDTH-CV 16.1 % (11.5-14.5)
[2018-08-30 16:23] LABS: HEMATOCRIT 20.3 % (37.0-47.0); MEAN CORPUSCULAR HEMOGLOBIN 28 pg (27.0-31.0)
[2018-08-30 16:28] LABS: CALCIUM 8.9 mg/dL (8.4-10.2); CREATININE, serum 2.47 mg/dL (0.52-1.25)
[2018-08-30 16:30] LABS: HEMOGLOBIN 6.3 g/dl (12.5-16.0)
== END ==
LOC: ZLAB.STJ 15:53
PROVIDERS: Internal Medicine
DX: I10 Essential (primary) hypertension (principal)

== ENCOUNTER → 2018-08-31 | Outpatient (CLI) | payer MEDICARE, OTHER ==
[~2018-08-31] MED LIST changes: +CERAVE FACIAL M89 ML TP; +D3-5050000 IU; +IMDUR 60MG60 MG/TAB PO; +NIZORAL SHAMPO120 M1 TP
[2018-08-31 09:33] LABS: HEMOGLOBIN 6.2 g/dl (12.5-16.0)
== END ==
LOC: ZLAB.STJ 09:11
PROVIDERS: Internal Medicine
DX: D64.9 Anemia, unspecified (principal)

== ENCOUNTER 2018-09-03 07:57 | Outpatient (RCR) | payer MEDICARE, OTHER ==
[~2018-09-03] VITALS: Ht 154.9 cm; Wt 80.7 kg
[2018-09-03] VITALS (10 sets, daily range): BP systolic 125–177; BP diastolic 59–76; PULSE 57–63; TEMP 97.8–98.5
[~2018-09-03 07:57] MED LIST changes: -CERAVE FACIAL M89 ML TP; -D3-5050000 IU; -IMDUR 60MG60 MG/TAB PO; -NIZORAL SHAMPO120 M1 TP
[2018-09-03] MEDS ORDERED: IMDUR 60MG60 MG/TAB PO (09:16)
[2018-09-03] MEDS ORDERED: NIZORAL SHAMPO120 M1 TP (09:18)
[2018-09-03] MEDS ORDERED: D3-5050000 IU (09:19)
[2018-09-03] MEDS ORDERED: CERAVE FACIAL M89 ML TP (09:20)
--- NOTE | 2018-09-03 12:30 | NUR ---
PT VSS AND AX0X3 POST LOOP RECORDER INSERTION. UPPER MID CHEST DRESSING IS C/D/I AND PATIENT DENIES PAIN AT THIS TIME. PT AMBULATED ONCE AROUND NURSES STATION AND HAS VOIDED ONCE. NO LONGER FEELING SHAKY AND VERBALIZES FEELING MUCH BETTER. DISCHARGE INSTRUCTIONS REVIEWED AND SIGNED AND PATIENT AMBULATED OUT OF UNIT WITHOUT ISSUE.
== END 2018-09-03 16:00 | disposition home or self-care (01) ==
LOC: EUO 07:57
DX: C18.9 Malignant neoplasm of colon, unspecified (principal); K31.811 Angiodysplasia of stomach and duodenum with bleeding; D50.0 Iron deficiency anemia secondary to blood loss (chronic); I25.10 Atherosclerotic heart disease of native coronary artery without angina pectoris
CPT/HCPCS: J1940; J7050; P9016

== ENCOUNTER → 2018-09-10 | Outpatient (CLI) | payer MEDICARE, OTHER ==
[~2018-09-10] MED LIST changes: +CERAVE FACIAL M89 ML TP; +D3-5050000 IU; +IMDUR 60MG60 MG/TAB PO; +NIZORAL SHAMPO120 M1 TP
[2018-09-10 16:00] LABS: MEAN CELL VOLUME 89 fl (80.0-100.0); MEAN CORPUSCULAR HGB CONC 31 g/dl (33.0-37.0); PLATELET COUNT 245 K/mm3 (130-400); RED BLOOD COUNT 3.16 M/mm3 (4.10-5.30); REDCELL DISTRIBUTION WIDTH-CV 14.9 % (11.5-14.5)
[2018-09-10 16:02] LABS: HEMATOCRIT 28.2 % (37.0-47.0); HEMOGLOBIN 8.7 g/dl (12.5-16.0); MEAN CORPUSCULAR HEMOGLOBIN 28 pg (27.0-31.0)
[2018-09-10 16:12] LABS: CALCIUM 8.5 mg/dL (8.4-10.2); CREATININE, serum 2.24 mg/dL (0.52-1.25)
== END ==
LOC: ZLAB.STJ 15:52
PROVIDERS: Internal Medicine
DX: R79.89 Other specified abnormal findings of blood chemistry (principal); R68.89 Other general symptoms and signs

== ENCOUNTER → 2018-09-17 | Outpatient (CLI) | payer MEDICARE, OTHER ==
[2018-09-17 15:12] LABS: MEAN CELL VOLUME 89 fl (80.0-100.0); MEAN CORPUSCULAR HGB CONC 32 g/dl (33.0-37.0); MEAN PLATELET VOLUME 9.3 fl (7.4-10.4); PLATELET COUNT 293 K/mm3 (130-400); RED BLOOD COUNT 2.99 M/mm3 (4.10-5.30); REDCELL DISTRIBUTION WIDTH-CV 14.6 % (11.5-14.5)
[2018-09-17 15:13] LABS: HEMOGLOBIN 8.5 g/dl (12.5-16.0); MEAN CORPUSCULAR HEMOGLOBIN 28 pg (27.0-31.0)
[2018-09-17 15:14] LABS: HEMATOCRIT 26.7 % (37.0-47.0)
[2018-09-17 15:16] LABS: CREATININE, serum 2.64 mg/dL (0.52-1.25); POTASSIUM 5.1 mmol/L (3.4-5.0)
== END ==
LOC: ZLAB.STJ 15:03
PROVIDERS: Internal Medicine
DX: R94.39 Abnormal result of other cardiovascular function study (principal)

== ENCOUNTER 2018-09-25 13:49 | Inpatient (IN) | payer MEDICARE, OTHER ==
[~2018-09-25] VITALS: Ht 154.9 cm; Wt 85.3 kg
[2018-09-25] VITALS (192 sets, daily range): BP systolic 125–138; BP diastolic 67–80; PULSE 71–78; TEMP 97.5–98.2; O2SAT 73–95
[2018-09-25 14:28] LABS: BASO % 0.3 % (0.0-2.0); EOS % 0.1 % (0-4.0); GRAN # 11.9 (1.4-6.5); GRAN % 86.8 % (42.2-75.2); LYMPH # 0.8 (1.2-3.4); LYMPH % 5.7 % (20.0-51.0); MEAN CELL VOLUME 92 fl (80.0-100.0); MEAN CORPUSCULAR HGB CONC 31 g/dl (33.0-37.0); MEAN PLATELET VOLUME 9.1 fl (7.4-10.4); MONO # 0.9 (0.1-0.6); MONO % 6.4 % (1.7-9.3); PLATELET COUNT 290 K/mm3 (130-400); RED BLOOD COUNT 2.37 M/mm3 (4.10-5.30); REDCELL DISTRIBUTION WIDTH-CV 15.3 % (11.5-14.5)
[2018-09-25 14:30] LABS: HEMATOCRIT 21.7 % (37.0-47.0); HEMOGLOBIN 6.7 g/dl (12.5-16.0); MEAN CORPUSCULAR HEMOGLOBIN 28 pg (27.0-31.0)
[2018-09-25 14:32] LABS: INR 1.1 (0.8-3.0); PROTHROMBIN TIME 12.9 SECONDS (9.7-12.8)
[2018-09-25 14:38] LABS: ALBUMIN 3.6 gm/dL (3.5-5.0); BILIRUBIN,TOTAL 0.2 mg/dL (0.0-1.0); CALCIUM 8.6 mg/dL (8.4-10.2); CREATININE, serum 2.81 mg/dL (0.52-1.25); POTASSIUM 5.4 mmol/L (3.4-5.0); TOTAL PROTEIN 7.4 gm/dL (6.4-8.2)
[2018-09-25 14:57] LABS: TROPONIN-I 3.32 ng/mL (0.000-0.035)
--- NOTE | 2018-09-25 23:04 | NUR ---
PT ALERT AND ORIENTED X 4 BUT EASILY FORGETFUL. PT NEEDS REMINDING AT TIMES. STEADY ON HER FEET AND WAS ABLE TO TRANSFER FROM STRETCHER TO BED WITH STAND BY ASSIST. PT ORIENTED TO ROOM, HOSPITAL POLICY AND USE OF CALL LIGHT, PT VERBALIZED UNDERSTANDING.
[2018-09-26] VITALS (853 sets, daily range): BP systolic 125–172; BP diastolic 57–141; PULSE 58–83; TEMP 97.4–98; O2SAT 36–100
--- NOTE | 2018-09-26 01:32 | NUR ---
1919 - REPORT RECEIVED FROM JEWEL BLANK VIA PHONE. 1929 - PT ARRIVED AT UNIT VIA STRETCHER, STEADY ON HER FEET AND ABLE TO TRANSFER FROM STRETCHER TO BED WITH STANDBY ASSIST. PT ALERT AND ORIENTED X4, COMPLAINS OF PAIN AROUND NECK 5/10, ON NASAL CANULA 5LPM WITH SATURATION OF 92%. PT ORIENTED TO ROOM, USE OF CALL LIGHT AND HOSPITAL POLICY, PT VERBALIZED UNDERSTANDING. 2124 - FIRST UNIT OF BLOOD STARTED, PT'S VS STABLE, DENIES SOB OR ANY DISCOMFORT. 2229 - CALLED BY LAB FOR A CRITICAL OF TROPONIN AT 5.370. NO NOTIFICATION NEEDED SINCE VALUE IS LOWER COMPARED TO THE PREVIOUS ONE. 0 - SECOND UNIT OF BT STARTED, PT TOLERATING WELL WITH NO COMPLAINTS OF PAIN, SOB, OR ANY DISCOMFORT.
--- NOTE | 2018-09-26 03:54 | NUR ---
BT DONE AT 0330, PT TOLERATED WELL WITH NO ADVERSE REACTION. VS STABLE, LUNGS ARE CLEAR, NO COMPLAINTS OF SOB, PAIN OR AY DISCOMFORT. WILL CONTINUE TO MONITOR.
[2018-09-26 05:10] LABS: ARTERIAL BLD GAS O2 SATURATION 91.1 % (92-100); ARTERIAL BLD GAS TCO2 CT 19.1; ARTERIAL BLOOD GAS BASE EXCESS -9.1 (-2-2); ARTERIAL BLOOD GAS HCO3 17.8 meq/L (22-26); ARTERIAL BLOOD GAS PCO2 42.5 mmHg (35-45); ARTERIAL BLOOD GAS PO2 64.8 mmHg (80-100); ARTERIAL BLOOD GAS pH 7.24 (7.35-7.45)
[2018-09-26 06:05] LABS: BASO % 0.2 % (0.0-2.0); EOS % 0.1 % (0-4.0); GRAN # 12.9 (1.4-6.5); GRAN % 87.8 % (42.2-75.2); LYMPH # 0.6 (1.2-3.4); LYMPH % 4.4 % (20.0-51.0); MEAN CELL VOLUME 92 fl (80.0-100.0); MEAN CORPUSCULAR HGB CONC 32 g/dl (33.0-37.0); MEAN PLATELET VOLUME 8.9 fl (7.4-10.4); MONO # 0.9 (0.1-0.6); MONO % 6.4 % (1.7-9.3); PLATELET COUNT 241 K/mm3 (130-400); RED BLOOD COUNT 3.01 M/mm3 (4.10-5.30)
[2018-09-26 06:09] LABS: HEMATOCRIT 27.8 % (37.0-47.0); HEMOGLOBIN 8.8 g/dl (12.5-16.0); MEAN CORPUSCULAR HEMOGLOBIN 29 pg (27.0-31.0)
[2018-09-26 06:16] LABS: CALCIUM 8.2 mg/dL (8.4-10.2); CREATININE, serum 2.81 mg/dL (0.52-1.25); POTASSIUM 4.7 mmol/L (3.4-5.0)
[2018-09-26 06:32] LABS: TROPONIN-I 6.37 ng/mL (0.000-0.035)
[2018-09-26 06:38] LABS: PH 5 (5-8); SQUAMOUS EPITHELIAL 0-2 /hpf; URINE APPEARANCE Cloudy; URINE BACTERIA Moderate /hpf; URINE BILIRUBIN Negative (NEGATIVE); URINE BLOOD 1+ (NEGATIVE); URINE COLOR Yellow; URINE GLUCOSE 2+ (NEGATIVE); URINE KETONE Negative (NEGATIVE); URINE LEUKOCYTE ESTERASE 3+ (NEGATIVE); URINE NITRATE Negative (NEGATIVE); URINE PROTEIN(semi-quant) 2+ (NEGATIVE); URINE UROBILINOGEN Negative (NEGATIVE)
--- NOTE | 2018-09-26 06:38 | NUR ---
0635 - CRITICAL LAB OF TROPONIN AT 6.370, DR. DUFF NOTIFIED, NO NEW ORDERS GIVEN AT THIS TIME SINCE CARDIOLOGY HAS BEEN CONSULTED.
--- NOTE | 2018-09-26 07:10 | NUR ---
Report received from Angelia HOLLOWAY and care resumed. During bedside report, pt 02 sats 78% on 10L OM and not improving. Pt placed on bipap. O2 sats back up to mid 90's. Pt remains resting on bipap at this time. Will continue to follow.
--- NOTE | 2018-09-26 07:13 | NUR ---
CALLED TO PT'S ROOM AT THIS TIME BY JEWEL BERG DUE TO PT'S SPO2 IN THE 70'S. PT ON 15L OXYMASK SPO2 83% UPON ENTERING ROOM. PT PLACED ON BIPAP AT THIS TIME. PT TOLERATED WELL AND RECOVERED QUICKLY. BEGAN FIO2 AT 75%. PT WAS ABLE TO BE WEANED QUICKLY AND IS CURRENTLY ON 45% WITH A SPO2 OF 93%. PT STATES THAT SHE FEELS BETTER AND LOOKS COMFORTABLE AT THIS TIME.
[2018-09-26 08:03] LABS: COLLECTION METHOD CLEAN CATCH
--- NOTE | 2018-09-26 08:35 | NUR ---
Dr Wong in to see pt at this time.
--- NOTE | 2018-09-26 09:31 | NUR ---
Dr Escalera in to see pt at this time.
[2018-09-26 11:04] LABS: URINE PROTEIN:CREAT RATIO 6.37 (0.00-0.14)
--- NOTE | 2018-09-26 12:10 | NUR ---
Pt 02 sats remain mid to upper 80's on bipap. Dr Kelly notified and abg ordered. Will also consult Dr Mann. Will continue to follow.
[2018-09-26 12:31] LABS: ARTERIAL BLD GAS O2 SATURATION 84.7 % (92-100); ARTERIAL BLD GAS TCO2 CT 18.9; ARTERIAL BLOOD GAS BASE EXCESS -11.2 (-2-2); ARTERIAL BLOOD GAS HCO3 17.3 meq/L (22-26); ARTERIAL BLOOD GAS PCO2 50.9 mmHg (35-45); ARTERIAL BLOOD GAS PO2 52.8 mmHg (80-100)
[2018-09-26 12:32] LABS: ARTERIAL BLOOD GAS pH 7.15 (7.35-7.45)
--- NOTE | 2018-09-26 12:45 | NUR ---
PER DR. PRICE POST 1235 ABG SETTINGS ON BIPAP INCREASED. IPAP 20 EPAP 5 RR 25. PT TOLERATED WELL.
--- NOTE | 2018-09-26 14:20 | NUR ---
Dr Kelly and Dr Mann had talk with pt's DPOA regarding code status and if pt would want to be intubated. RADHA Grant, states pt would not want to be at this time. Pt will remain on bipap and continue to treat up to point of intubation. AIVS currently at bedside to place a PICC. Will continue to follow.
--- NOTE | 2018-09-26 14:41 | NUR ---
SW has not been able to meet with patient due her being on bipap most of the day. Doctor has contacted patient's life partner, Rudy, but he has not come to the hospital yet. Patient lives at [facility]. Her PCP is Dr Mejia and she obtains medications through [facility]. SARAY will speak with Rudy if/when he arrives and continue to follow.
[2018-09-26 15:22] LABS: ARTERIAL BLD GAS O2 SATURATION 92.6 % (92-100); ARTERIAL BLD GAS TCO2 CT 19.2; ARTERIAL BLOOD GAS BASE EXCESS -9.4 (-2-2); ARTERIAL BLOOD GAS HCO3 17.8 meq/L (22-26); ARTERIAL BLOOD GAS pH 7.23 (7.35-7.45)
--- NOTE | 2018-09-26 18:29 | NUR ---
Pt remains on bipap at this time. Denies any pain but continues to be restless and pulls at bipap. Frequent orientation needed. Will continue to follow.
--- NOTE | 2018-09-26 19:28 | NUR ---
Report given to Isabell HOLLOWAY and care transfered.
--- NOTE | 2018-09-26 21:00 | NUR ---
Pt assessment complete. Pt resting in bed with assistance to reposition Q2hr. Pt has call light in hand with television on. Resting on the Bipap. Reports ear discomfort at this time with staff explination to pt that is more than likely caused from the high pressure of the Bipap. Pt reports being able to tolerate and will discuss with physicians during morning rounds. Pt currently has SCD bilaterally on. Dressing to left arm noted with dried drainage. Pt pleasant and cooperative during assessment and cares at this time.
[2018-09-26 22:28] LABS: CALCIUM 8.4 mg/dL (8.4-10.2); CREATININE, serum 2.86 mg/dL (0.52-1.25); POTASSIUM 4.4 mmol/L (3.4-5.0)
[2018-09-27] VITALS (447 sets, daily range): BP systolic 139–176; BP diastolic 74–84; PULSE 64–77; TEMP 97.4–97.9; O2SAT 36–100
--- NOTE | 2018-09-27 | NUR ---
During bed bath dried drainage dressing removed from left forearm and placed a bandaid. No active drainage noted or scabbing present. Pt continues to rest on Bipap with intermittent requests for drinks of water.
--- NOTE | 2018-09-27 05:30 | NUR ---
Pt O2 sats noted to be sitting in the high 80's at this time. RT called for adjustments in Bipap settings. O2 increased to 100% with increase in EPAP made as well. Pt noted to continue to be tachypneic at this time and although education as been made to pt regarding taking off bipap for drinks of water that the primary concern is to wear the Bipap as much as possible for improvement in oxygenation with recent decreases noted in sats.
[2018-09-27 05:51] LABS: MEAN CELL VOLUME 91 fl (80.0-100.0); MEAN CORPUSCULAR HGB CONC 32 g/dl (33.0-37.0); MEAN PLATELET VOLUME 9.1 fl (7.4-10.4); PLATELET COUNT 235 K/mm3 (130-400); RED BLOOD COUNT 3.06 M/mm3 (4.10-5.30); REDCELL DISTRIBUTION WIDTH-CV 15.3 % (11.5-14.5)
[2018-09-27 05:55] LABS: HEMATOCRIT 27.8 % (37.0-47.0); HEMOGLOBIN 8.9 g/dl (12.5-16.0); MEAN CORPUSCULAR HEMOGLOBIN 29 pg (27.0-31.0)
[2018-09-27 06:06] LABS: ALBUMIN 3.3 gm/dL (3.5-5.0); BILIRUBIN,TOTAL 0.3 mg/dL (0.0-1.0); CALCIUM 8.6 mg/dL (8.4-10.2); CREATININE, serum 2.88 mg/dL (0.52-1.25); POTASSIUM 3.9 mmol/L (3.4-5.0); TOTAL PROTEIN 7.1 gm/dL (6.4-8.2)
--- NOTE | 2018-09-27 07:00 | NUR ---
Report provided to Michelle. Pt was assisted oncoming and offgoing staff to boost and reposition pt.
[2018-09-27 07:02] LABS: BAND 6 % (0-10); LYMPHOCYTE 4 % (20.0-51.0); NEUTROPHILS 86 % (42.0-75.2); PLATELET ESTIMATE NORMAL (NORMAL)
[2018-09-27 07:48] LABS: ARTERIAL BLD GAS O2 SATURATION 94.9 % (92-100); ARTERIAL BLD GAS TCO2 CT 22.2; ARTERIAL BLOOD GAS BASE EXCESS -4.6 (-2-2); ARTERIAL BLOOD GAS PCO2 40.7 mmHg (35-45); ARTERIAL BLOOD GAS pH 7.33 (7.35-7.45)
--- NOTE | 2018-09-27 09:22 | NUR ---
SARAY contacted patient's DPOA, Rudy, about discharge plan. Rudy reports patient and himself would like patient to return to [facility] at the time of discharge. Rudy gave verbal consent over phone. SARAY completed choice form. Rudy would like SW to update [facility] and have [facility] contact him with the updates. Once doctor rounds on patient, SW will fax updates to [facility] and inform them of discharge plan.
--- NOTE | 2018-09-27 11:30 | NUR ---
First visit from the fruit pitter. No needs right now.
--- NOTE | 2018-09-27 13:09 | NUR ---
Dr Kelly in to see pt at this time. Comfort care measures discussed. Will follow up with RADHA Grant and transition to comfort care.
--- NOTE | 2018-09-27 13:37 | NUR ---
Pt's dopa saad here and will transition pt to comfort care at this time.
--- NOTE | 2018-09-27 14:19 | NUR ---
Pt removed from bipap at 1355 to comfort care. Precedex drip infusing and prn morhpine and ativan being given for comfort/air hunger/pain. Friends at bedside as well as RN and Marisel Garza, pallative care. Will continue to follow.
--- NOTE | 2018-09-27 14:35 | NUR ---
Pt heart rate and respirations have ceased. Dr Kelly, Marisel Garza, myself, and friends at bedside.
--- NOTE | 2018-09-27 14:38 | NUR ---
SW attended clinical rounds. Doctor discussed hospice/comfort care with patient. Patient reported she would like to speak with her life partner/DPOA Rduy but would like to swtich to comfort care. Doctor contacted Rudy, and then Rudy came to the hospital to say his goodbyes. Rudy reported he has started making /cremation arrangements with [facility] here in [place]. Marisel, [facility] care nurse, met with patient and Rudy as well. SARAY then contacted [facility], per patient request, and informed them that patient has chosen to switch to comfort care. SARAY will fax doctors notes to [facility].
--- NOTE | 2018-09-27 16:05 | NUR ---
SARAY informed of patient's time of [id number]. Patient's life partner was present but left soon after patient passed. Engineering Technology Instructor contacted [facility]. Patient is a donor candidate. [facility] will contact Rudy for consent.
--- NOTE | 2018-09-27 16:05 | NUR ---
Called to ICU @ 1327 by Shannon SHAHID as plan of care is to start sedation and removed bipap mask from pt. Presence requested to support significant other through the dying process. Rudy is very clear in his understanding that pt is expected to and is very restless and pacing, talking about leaving. Mounika would very much like Rudy to stay at bedside. Gayle HENSLEY was present to provide support as well as friend of Mounika's. Pt actually requested sugar free pudding after her mask was removed and she was able to take 4 bites and then reported she was full and rinsed it down with ice water. Under the care of Michelle Castañeda RN, pt was kept comfortable and was able to pass peacefully with Rudy in the room. Support provided throughout process. Comfort quilt was provided.
--- NOTE | 2018-09-27 18:00 | NUR ---
Pt body released to home at this time.
== END 2018-09-27 18:00 | disposition expired | DRG 811 ==
LOC: COL.ER 13:49 → ICU 14:44
PROVIDERS: Emergency Medicine; Internal Medicine Nephrology; Internal Medicine Pulmonary Disease; Nurse Practitioner Family; ADMIT Family Medicine
PROC: 02HV33Z Insertion of Infusion Device into Superior Vena Cava, Percutaneous Approach (ICD-10-PCS; principal; 2018-09-26)
DX: D62 Acute posthemorrhagic anemia (principal); J96.01 Acute respiratory failure with hypoxia; K31.811 Angiodysplasia of stomach and duodenum with bleeding; I21.A1 Myocardial infarction type 2; J18.9 Pneumonia, unspecified organism; I69.359 Hemiplegia and hemiparesis following cerebral infarction affecting unspecified side; I50.22 Chronic systolic (congestive) heart failure; I13.0 Hypertensive heart and chronic kidney disease with heart failure and stage 1 through stage 4 chronic kidney disease, or unspecified chronic kidney disease; N18.4 Chronic kidney disease, stage 4 (severe); N17.9 Acute kidney failure, unspecified; E87.2 Acidosis; N39.0 Urinary tract infection, site not specified; E66.2 Morbid (severe) obesity with alveolar hypoventilation; F41.9 Anxiety disorder, unspecified; E78.5 Hyperlipidemia, unspecified; E03.9 Hypothyroidism, unspecified; E55.9 Vitamin D deficiency, unspecified; E11.22 Type 2 diabetes mellitus with diabetic chronic kidney disease; J44.9 Chronic obstructive pulmonary disease, unspecified; I48.91 Unspecified atrial fibrillation; I27.20 Pulmonary hypertension, unspecified; E87.5 Hyperkalemia; E11.65 Type 2 diabetes mellitus with hyperglycemia; Z66 Do not resuscitate; Z51.5 Encounter for palliative care; Z68.33 Body mass index [BMI] 33.0-33.9, adult
CPT/HCPCS: 99223-AI; 99233-AI; 99239; A4216; C1751; C9113; J0692; J0696; J0881; J1815; J1940; J2060; J2270; J2405; J2543; J2916; J3370; J7030; J7050; P9016

== ENCOUNTER → 2018-09-25 | Outpatient (CLI) | payer MEDICARE, OTHER ==
[2018-09-25 12:30] LABS: BASO % 0.3 % (0.0-2.0); EOS % 0.1 % (0-4.0); GRAN % 90.5 % (42.2-75.2); LYMPH # 0.5 (1.2-3.4); LYMPH % 3.4 % (20.0-51.0); MEAN CELL VOLUME 89 fl (80.0-100.0); MEAN CORPUSCULAR HGB CONC 32 g/dl (33.0-37.0); MEAN PLATELET VOLUME 9.2 fl (7.4-10.4); MONO # 0.8 (0.1-0.6); MONO % 4.9 % (1.7-9.3); PLATELET COUNT 293 K/mm3 (130-400); RED BLOOD COUNT 2.41 M/mm3 (4.10-5.30); REDCELL DISTRIBUTION WIDTH-CV 15.2 % (11.5-14.5)
[2018-09-25 12:36] LABS: CALCIUM 8.5 mg/dL (8.4-10.2); CREATININE, serum 2.66 mg/dL (0.52-1.25); POTASSIUM 5.6 mmol/L (3.4-5.0)
[2018-09-25 12:52] LABS: HEMATOCRIT 21.5 % (37.0-47.0); HEMOGLOBIN 6.8 g/dl (12.5-16.0); MEAN CORPUSCULAR HEMOGLOBIN 28 pg (27.0-31.0)
== END ==
LOC: ZLAB.STJ 12:03
PROVIDERS: Internal Medicine
DX: D64.9 Anemia, unspecified (principal)